=== PATIENT | female | born 1975 | race Caucasian/White ===

== ENCOUNTER → 2023-05-19 13:58 | Outpatient (BNVA) | payer BC, SELFPAY | PROVIDERS: PCP Nurse Practitioner Family; Visit Provider Nurse Practitioner Family ==

== ENCOUNTER 2023-08-09 15:38 | Outpatient (AMB) | payer BC, SELFPAY ==
[2023-08-09 15:47] VITALS: BP 124/86; PULSE 86; O2SAT 100; BMI 32.0
--- NOTE | 2023-08-09 15:47 | MHC.PC.OV ---
"Vital Signs 08/09/23 15:47 Height 5 ft 5 in Weight 192 lb 4 oz BMI 32.0 BP 124/86 Blood Pressure Location Lt brachial Position Sitting Pulse 86 Pulse Source Pulse Oximeter Pulse Oximetry (%) 100 Oxygen Delivery Method Room Air Intake Visit Reasons: PE Allergies tetracycline Allergy (Intermediate, Verified 08/09/23 15:49) diarrhea Tobacco use date assessed: 08/09/23 Dental Screening Dental Screen Date: 08/09/23 Did you have a dental visit in the last 12 months?: Yes Did you have a dental problem in the last 6 months where you did not have access to dental care?: No Was dental information given to patient?: Patient has dentist HPI PE HPI Details Pt is here for a PE. Will order labs. Colon screen is scheduled. Mammo is up to date. Has a ob/gyn nurse. [facility] Medical History Migraines Multiple sclerosis Optic neuritis Family History Father Mental health disorder Social History Housing: House Patient Tobacco Use Status: Never used Tobacco e-Cigarette/Vaping Use: Never Used Second Hand Smoke Exposure: No service: No Current occupational status: employed Current occupation: [employer] | [employer] Current occupational exposures/hazards: No Cognitive needs: No Hearing needs: No Vision needs: No Questionnaire Thrive Questionnaire Date Thrive assessed: 05/30/22 CAREN-7 AMB Questionnaire CAREN-7 Date CAREN - 7 assessed: 05/30/22 Source: Developed by Drs. Milton Yanes, Ashley Calderón, Jose Maria Liu and colleagues, with an educational louis from [employer]. Review of Systems Const Denies chills and Denies fever(s) Eyes Denies blurry vision ENT Denies vertigo, Denies dizziness and Denies sore throat Card Denies chest pain at rest, Denies chest pain with activity, Denies diaphoresis, Denies dyspnea and Denies dyspnea on exertion Resp Denies cough, Denies dyspnea, Denies dyspnea on exertion and Denies wheezing GI Denies abdominal pain, Denies melena, Denies hematochezia, Denies constipation, Denies diarrhea and Denies loose stools Denies hematuria Musc Denies numbness and Denies tingling Skin/Breast Denies lesions Neuro Denies vertigo, Denies dizziness, Denies numbness and Denies tingling Psych Denies anxiety, Denies depression, Denies homicidal ideation, Denies suicidal ideation and Denies other (substance abuse) Aller/Immun Denies wheezing Physical exam (Primary Care) Vital Signs: Last Vital Signs Pulse 86 08/09/23 15:47 BP 124/86 08/09/23 15:47 Pulse Ox 100 08/09/23 15:47 Oxygen Delivery Method Room Air 08/09/23 15:47 BMI result Body Mass Index 32.0 Tobacco/Smoking Status: Tobacco use Status Tobacco use date assessed 08/09/23 08/09/23 15:52 Patient Tobacco Use Status Never used Tobacco 08/09/23 15:52 e-Cigarette/Vaping Use Never Used 08/09/23 15:52 Thrive Assessment: Date of Thrive Assessment Date Thrive assessed 05/30/22 08/09/23 15:52 Const General: cooperative Nutritional Appearance: obese Orientation/consciousness: patient oriented x3 HENMT Head: Yes normal to inspection, Yes normocephalic and Yes atraumatic Ears: TM's normal bilaterally Eyes General: appearance normal, both eyes and all related structures Alignment and Position: alignment normal and position normal Neck Neck: Yes normal visual inspection and Yes no lymphadenopathy Thyroid: Thyroid normal Resp Effort & Inspection: normal respiratory effort Auscultation: clear to auscultation bilaterally Cardio Rate: regular rate Rhythm: regular rhythm Heart sounds: S1 normal heart sound present, S2 normal heart sound present and no murmurs GI Palpation (GI): Soft to palpation and nontender Auscultation: normal bowel sounds Skin Rashes: no rashes Neuro General: patient oriented x3, moves all extremities, no focal motor deficits and deep tendon reflexes 2+ bilaterally Romberg Test: Negative Psych Appearance: grossly normal Mental Status: mental status grossly normal Speech and movement: Normal speech and movement present Affect: normal affect Attitude: cooperative Thought process: Normal thought process present Thought content: Normal thought content present Insight: Good insight present (Psych) Judgement: Good judgement present (Psych) Assessment and Plan Assessment & Plan (1) Physical exam: Code(s): Z00.00 - Encounter for general adult medical examination without abnormal findings Plan The patient agreed to the use of a medical office professional instructor for this encounter. Scribed for POLLO Castro by Marianela Herzog medical office professional instructor, on 08/09/2023 at 15:55 EST. Coding Level of Care Code Est Pt Prev Care 40-64y(44923) Diagnoses Physical exam Z00.00"
== END 2023-08-09 16:39 | disposition home or self-care (01) ==
PROVIDERS: Visit Provider Nurse Practitioner Family
DX: Z00.00 Encounter for general adult medical examination without abnormal findings (principal)
CPT/HCPCS: 99396

== ENCOUNTER 2023-11-15 08:49 | Outpatient (REF) | payer BC, SELFPAY ==
[2023-11-15 12:27] LABS: HBS Num1 0.38 mIU/mL (0-7.99); HBc Num1 0.14 S/CO (0.00-0.79); HBsAGNum1 0.34 S/CO (0.00-0.99); Hepatitis A Antibody IgM 0.11 Index (0-0.79); Hepatitis B Core Antibody Nonreactive (Nonreactive); Hepatitis B Surface Antigen Negative (Negative); ~HepC Num1 0.12 S/CO (0.00-0.79); ~Hepatitis A Antibody IgM Nonreactive (Nonreactive); ~Hepatitis B Surface Antibody NONREACTIVE (Nonreactive); ~Hepatitis C Antibody Nonreactive (Nonreactive)
[2023-11-16 16:13] LABS: Rubella IgG Antibody 5.87 Index
[2023-11-17 21:28] LABS: TS Negative Control Passed; TS Panel A 0; TS Panel B 0; TS Positive Control Passed; TSpotTB Negative (Negative)
== END 2023-11-15 08:50 | disposition home or self-care (01) ==
LOC: HO.HMGCLDS 08:49
PROVIDERS: PCP Nurse Practitioner Family; Visit Provider Nurse Practitioner Family
DX: Z28.29 Immunization not carried out because of patient decision for other reason (principal)
CPT/HCPCS: 36415; 86481; 86704; 86706; 86709; 86735; 86762; 86765; 86787; 86803; 87340

== ENCOUNTER 2024-08-30 12:44 | Outpatient (REF) | payer BC, SELFPAY | END 2024-08-30 12:45 | disposition home or self-care (01) | LOC: HO.HMGCX 12:44 | PROVIDERS: PCP Nurse Practitioner Family; Visit Provider Nurse Practitioner Family | DX: Z13.89 Encounter for screening for other disorder (principal) ==

== ENCOUNTER 2024-08-30 12:50 | Outpatient (REF) | payer BC, SELFPAY ==
--- NOTE | ~2024-08-30 | US_ITS ---
EXAMINATION: US THYROID CLINICAL INFORMATION: Nontoxic single thyroid nodule. COMPARISON: None available. TECHNIQUE: Linear transducer grayscale and color Doppler examination with attention to the region of the thyroid. FINDINGS: SIZE: Measurements of the thyroid lobes and nodules are given in sagittal, anteroposterior and transverse dimensions respectively. Right Thyroid Lobe: 5.1 x 1.6 x 1.9 cm, volume 8.1 mL. Parenchyma: The gland echotexture is homogeneous. Thyroid vascularity is normal. Left Thyroid Lobe: 5.5 x 1.3 x 1.6 cm, volume 6.0 mL. Parenchyma: The gland echotexture is homogeneous. Thyroid vascularity is normal. Isthmus: 0.6 cm in maximum AP dimension. Estimated total number of nodules greater than or equal to 1 cm: 0. [employer] nodules are described as follows: 1. Location: Left mid pole. Size: 0.6 x 0.3 x 0.5 cm, volume 0.05 mL. Nodule characteristics: Composition: Solid (2). Echogenicity: Hypoechoic (2). Shape: Not taller than wide (0). Margins: Smooth (0). Echogenic Foci: None (0). ACR TI-RADS total points: 4 ACR TI-RADS category: 4 2. Location: Right mid pole. Size: 0.6 x 0.4 x 0.4 cm, volume 0.06 mL. Nodule characteristics: Composition: Solid (2). Echogenicity: Isoechoic (1). Shape: Not taller than wide (0). Margins: Smooth (0). Echogenic Foci: None (0). ACR TI-RADS total points: 3 ACR TI-RADS category: 3 Solid hypoechoic nodule posterior and inferior to the right thyroid lobe measures 1.6 x 1.4 x 1.1 cm. This may represent a parathyroid adenoma versus exophytic thyroid nodule. NODES: No lymphadenopathy is seen in the tissue surrounding the thyroid gland. US/US thyroid IMPRESSION: Solid hypoechoic nodule posterior and inferior to the right thyroid lobe measures 1.6 x 1.4 x 1.1 cm. This may represent a parathyroid adenoma versus exophytic thyroid nodule. Correlation should be made with parathyroid hormone levels. ACR TI-RADS RECOMMENDATION REFERENCE: Ultrasound-guided fine-needle aspiration, followup ultrasound, no further follow up. * TR1 (0 point) and TR2 (2 points): No FNA or follow up. * TR3 (3 points): FNA if more than or equal to 2.5 cm in maximum dimension, followup ultrasound in 1, 3 and 5 years if 1.5 to 2.4 cm in maximum dimension. * TR4 (4-6 points): FNA if more than or equal to 1.5 cm in maximum dimension, followup ultrasound in 1, 2, 3 and 5 years if 1 to 1.4 cm in maximum dimension. * TR5 (more than or equal to 7 points): FNA if more than or equal to 1 cm in maximum dimension, followup ultrasound every year for 5 years if 0.5 to 0.9 cm in maximum dimension. * TR3, TR4 or TR5 nodules that are below the size threshold for followup receive no follow up. Electronically signed by: Brad Wallace MD 08/30/2024 04:22 PM EDT
== END 2024-08-30 12:51 | disposition home or self-care (01) ==
LOC: HO.HMGCX 12:50
PROVIDERS: PCP Nurse Practitioner Family; Visit Provider Nurse Practitioner Family
DX: E04.1 Nontoxic single thyroid nodule (principal)
CPT/HCPCS: 76536

== ENCOUNTER 2024-09-06 14:14 | Outpatient (REF) | payer BC, SELFPAY ==
[2024-09-06 17:03] LABS: Alanine Aminotransferase 42 U/L (0-31); Albumin Level 4.2 g/dL (3.5-5.0); Alkaline Phosphatase 55 U/L (39-117); Anion Gap 11 (12-20); Aspartate Amino Transferase 21 U/L (5-31); Bilirubin Total 0.4 mg/dL (0.0-1.0); Blood Urea Nitrogen 15 mg/dL (9-16); Calcium 9.6 mg/dL (8.4-10.2); Carbon Dioxide 25 mmol/L (22-29); Chloride 108 mmol/L (96-108); Estimated Glomerular Filt Rate > 60; Glucose Random 97 mg/dL (60-115); Parathyroid Hormone Intact 54.8 pg/mL (8.7-77.1); Potassium 4.2 mmol/L (3.3-5.1); Sodium 140 mmol/L (135-145); Total Protein 7.1 g/dL (6.5-8.0)
[2024-09-06 17:06] LABS: TSH reflex Free T4 0.93 uIU/mL (0.32-4.0)
[2024-09-11 15:19] LABS: Calcium, Ionized 5.3 mg/dL (4.7-5.5)
== END 2024-09-06 14:15 | disposition home or self-care (01) ==
LOC: HO.HMGCLDS 14:14
PROVIDERS: PCP Nurse Practitioner Family; Visit Provider Nurse Practitioner Family
DX: E04.1 Nontoxic single thyroid nodule (principal)
CPT/HCPCS: 36415; 80053; 82330; 83970; 84443

== ENCOUNTER 2024-09-18 08:32 | Outpatient (REF) | payer BC, SELFPAY ==
--- NOTE | ~2024-09-18 | US_ITS ---
EXAMINATION: US ABDOMEN COMPLETE CLINICAL INFORMATION: Abnormal levels of other serum enzymes. COMPARISON: None available. TECHNIQUE: Real-time imaging of the abdominal viscera using grayscale and color Doppler technique. Technically limited study secondary to bowel gas. FINDINGS: PANCREAS: No peripancreatic fluid ABDOMINAL AORTA: The proximal, mid, and distal segments dose defecated a maximum of 2 cm in diameter in the proximal segment.. INFERIOR VENA CAVA: No color Doppler interrogation LIVER: Increased echotexture. . No solid or cystic lesion. Main portal vein is not fully depicted. No intrahepatic biliary ductal dilatation. . GALLBLADDER: Surgically absent. COMMON BILE DUCT: Measures 4 mm. RIGHT KIDNEY: 10 cm. No hydronephrosis. Normal echotexture. No solid or cystic lesion. Normal renal cortical thickness. Normal flow on color Doppler interrogation of the renal hilum. LEFT KIDNEY: 10 cm. No hydronephrosis. Normal renal cortical thickness. No solid or cystic lesion. Normal flow on color Doppler interrogation of the renal hilum. SPLEEN: 11 cm. No solid or cystic lesion. FREE FLUID: None. US/US abdomen complete IMPRESSION: Hepatocellular disease versus hepatic steatosis. No ascites. No hydronephrosis. Electronically signed by: Kalyan Siu MD 10/02/2024 07:56 AM EST
== END 2024-09-18 08:33 | disposition home or self-care (01) ==
LOC: HO.HMGCX 08:32
PROVIDERS: PCP Nurse Practitioner Family; Visit Provider Nurse Practitioner Family
DX: R74.8 Abnormal levels of other serum enzymes (principal)
CPT/HCPCS: 76700

== ENCOUNTER → 2024-09-18 08:41 | Outpatient (BNV) | payer BC, SELFPAY | PROVIDERS: PCP Nurse Practitioner Family; Visit Provider Radiology Diagnostic Radiology | DX: R74.8 Abnormal levels of other serum enzymes (principal) | CPT/HCPCS: 76700 ==

== ENCOUNTER 2024-09-20 08:34 | Outpatient (REF) | payer BC, SELFPAY ==
[2024-09-20 17:14] LABS: Vitamin D 25-OH Total 60.5 ng/mL (>30)
[2024-09-25 14:23] LABS: Calcitonin <2 pg/mL (<=5)
== END 2024-09-20 08:35 | disposition home or self-care (01) ==
LOC: HO.HMGCLDS 08:34
PROVIDERS: PCP Nurse Practitioner Family; Visit Provider Student in an Organized Health Care Education/Training Program
DX: E55.9 Vitamin D deficiency, unspecified (principal); E04.1 Nontoxic single thyroid nodule
CPT/HCPCS: 36415; 82306; 82308

== ENCOUNTER 2024-09-20 08:34 | Outpatient (AMB) | payer BC, SELFPAY ==
--- NOTE | 2024-09-20 08:35 | A.OFFVIS_ITS ---
Vital Signs 09/20/24 08:37 Height 5 ft 5 in Weight 205 lb 4.006 oz BMI 34.2 BP 130/74 Blood Pressure Location Lt brachial Position Sitting Pulse 90 Pulse Source Pulse Oximeter Intake Visit Reasons: Nontoxic single thyroid nodule-lvm Intake Note: Patient present today for Nontoxic single thyroid nodule. 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 Diagnosed with MS 2010, managed conservatively, was undergoing surveillance cervial imaging when thyroid abnormalities picked up incidentally . US 08/30/24 I reviewed the images myself which showed a left subcentimeter TR 4 nodule, a right mid lobe subcentimeter TR 3 nodule, as well as a right 1.6 cm posterior and inferior nodule that is exophytic thyroid nodule or possibly parathyroid adenoma. This is solid, hypoechoic. Given its size and features, this meets criteria for FNA Patient currently denies heat or cold intolerance, diarrhea or constipation, hair loss, weight changes, mood changes, low energy, changes in appearance of eyes or vision changes, tremors, increased diaphoresis or dry skin. ? Does report palpitations she says she hasnt been evaluated for the palpitations. PCP feels related to anxiety. Reports a pressure sensation when she lays down flat for the past 6 months. Patient denies any difficulty swallowing, pain on swallowing or voice changes or difficulty breathing. Patient denies any history of childhood neck radiation. Denies having ever used lithium, amiodarone or biotin supplements. Patient denies any family history of thyroid cancer or thyroid disease. 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 Pulmonary: No SOB GI:No abdominal pain, no nausea or vomiting, no anorexia, no blood in stool : no burning micturition, dysuria or increase in urinary frequency Neurologic: No dizziness, no weakness in extremities Physical exam General: sitting comfortably in no acute distress HEENT: normocephalic/atraumatic, EOM intact, moist oral mucosa Neck: supple, symmetrical, no thyromegaly , no dorsocervical or supraclavicular fat pads Cardiac: normal heart sounds Pulm: normal breath sounds B/L, no added breath sounds Abd: not distended, no tenderness Extremities: no edema, no signs of myxedema Neuro: AAO x3, Speech: normal, no facial droop, moving all 4 extremities Laboratory Tests 09/06/24 14:33 Creatinine 0.89 Estimated GFR > 60 Calcium 9.6 Albumin 4.2 TSH 0.93 PTH Intact 54.8 Imaging US THYROID 09/12 CLINICAL INFORMATION: Nontoxic single thyroid nodule. COMPARISON: None available. TECHNIQUE: Linear transducer grayscale and color Doppler examination with attention to the region of the thyroid. FINDINGS: SIZE: Measurements of the thyroid lobes and nodules are given in sagittal, anteroposterior and transverse dimensions respectively. Right Thyroid Lobe: 5.1 x 1.6 x 1.9 cm, volume 8.1 mL. Parenchyma: The gland echotexture is homogeneous. Thyroid vascularity is normal. Left Thyroid Lobe: 5.5 x 1.3 x 1.6 cm, volume 6.0 mL. Parenchyma: The gland echotexture is homogeneous. Thyroid vascularity is normal. Isthmus: 0.6 cm in maximum AP dimension. Estimated total number of nodules greater than or equal to 1 cm: 0. 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 Location: Left mid pole. Size: 0.6 x 0.3 x 0.5 cm, volume 0.05 mL. Nodule characteristics: Composition: Solid (2). Echogenicity: Hypoechoic (2). Shape: Not taller than wide (0). Margins: Smooth (0). Echogenic Foci: None (0). ACR TI-RADS total points: 4 ACR TI-RADS category: 4 2. Location: Right mid pole. Size: 0.6 x 0.4 x 0.4 cm, volume 0.06 mL. Nodule characteristics: Composition: Solid (2). Echogenicity: Isoechoic (1). Shape: Not taller than wide (0). Margins: Smooth (0). Echogenic Foci: None (0). ACR TI-RADS total points: 3 ACR TI-RADS category: 3 Solid hypoechoic nodule posterior and inferior to the right thyroid lobe measures 1.6 x 1.4 x 1.1 cm. This may represent a parathyroid adenoma versus exophytic thyroid nodule. NODES: No lymphadenopathy is seen in the tissue surrounding the thyroid gland. US/US thyroid IMPRESSION: Solid hypoechoic nodule posterior and inferior to the right thyroid lobe measures 1.6 x 1.4 x 1.1 cm. This may represent a parathyroid adenoma versus exophytic thyroid nodule. Correlation should be made with parathyroid hormone levels. [facility] Medical History Migraines Multiple sclerosis Optic neuritis Family History Father Mental health disorder Social History Housing: House Patient Tobacco Use Status: Never used Tobacco e-Cigarette/Vaping Use: Never Used Second Hand Smoke Exposure: No service: No Current occupational status: employed Current occupation: [employer] Current occupational exposures/hazards: No Cognitive needs: No Hearing needs: No Vision needs: No Physical Exam Vital Signs: Last Vital Signs Pulse 90 09/20/24 08:37 BP 130/74 09/20/24 08:37 BMI result Body Mass Index 34.2 Assessment & Plan Assessment & Plan (1) Thyroid nodule: Code(s): E04.1 - Nontoxic single thyroid nodule Category: Medical Plan: Patient with no family history of thyroid cancer, with no personal history of head or neck radiation coming in today to establish care for multinodular thyroid. Underwent ultrasound US 08/30/24 I reviewed the images myself which showed a left subcentimeter TR 4 nodule, a right mid lobe subcentimeter TR 3 nodule, as well as a right 1.6 cm posterior and inferior nodule that is exophytic thyroid nodule or possibly parathyroid adenoma. This is solid, hypoechoic. Given its size and features, this meets criteria for FNA. She does not have any compressive symptoms. TSH normal from August 2024. Given that there is suspicion whether this dominant right-sided nodule could possibly a parathyroid adenoma, calcium and PTH levels checked August 2024 were also within normal limits. She is not on any vitamin-D or calcium supplementation since she has a low nutritional intake calcium due to GI intolerance to dairy products. I will check her vitamin-D levels as well, sometimes parathyroid glands are enlarged in the setting of vitamin-D deficiency. However based on the size of this possible exophytic thyroid nodule, we will go ahead and schedule her for a biopsy. I will ask for the sample to be stained for Parafibromin to determine whether this is parathyroid tissue. I explained that it is common to have thyroid nodules. About 95% of the time these nodules are benign. However if the nodule is > 1 cm in size or suspicious on ultrasound then a fine need aspiration biopsy is recommended. We discussed that a FNAB involves 4-5 passes with a small gauge needle and material obtained is sent off for cytology.If the cytopathology is benign then the nodule will be followed annually with repeat ultrasounds. However if it is suspicious or malignant, we will need to discuss further management. Indeterminate cytology can be further investigated with repeat FNA, genetic testing or empiric lobectomy. Malignant cytology is managed with either lobectomy or total thyroidectomy. We discussed briefly that thyroid cancer is, in most patients, an indolent disease that does not affect mortality. We will arrange for FNA of the right inferior and posterior 1.6 cm nodule at next available opening and patient will follow up with me in clinic thereafter for results and further decision making. Plan: -scheduled FNA of the right inferior and posterior 1.6 cm thyroid nodule -follow up 1-2 weeks after biopsy to discuss results Plan I spent 45 minutes in reviewing the record, seeing the patient and documenting in the medical record. Orders: Orders US biopsy thyroid Today E04.1 - Nontoxic single thyroid nodule Vitamin D 25-OH Total Today E55.9 - Vitamin D deficiency, unspecified Coding Level of Care Code New Pt Level 4 (39403) Diagnoses Thyroid nodule E04.1 Time Spent (min) 45
[2024-09-20 08:37] VITALS: BP 130/74; PULSE 90; BMI 34.2
== END 2024-09-20 09:46 | disposition home or self-care (01) ==
LOC: HO.ENCR 08:34
PROVIDERS: PCP Nurse Practitioner Family; Visit Provider Student in an Organized Health Care Education/Training Program
DX: E04.1 Nontoxic single thyroid nodule (principal)
CPT/HCPCS: 99204

== ENCOUNTER 2024-10-02 08:31 | Outpatient (REF) | payer BC, SELFPAY ==
--- NOTE | 2024-10-02 09:38 | PCN2_ITS ---
Brief Operative Note Date of procedure: 10/02/24 Pre-op diagnosis: right inferior posterior 1.6 cm thyroid nodule Procedure: THYROID FINE NEEDLE ASPIRATION PROCEDURE NOTE ? PROCEDURE PERFORMED: Ultrasound-guided FNA of thyroid nodule ? OPERATORS: ? INDICATION: right inferior posterior 1.6 cm thyroid nodule; FNA performed to assess for malignancy ? DESCRIPTION OF PROCEDURE: The indications for FNA (to assess for malignancy) were reviewed with the patient in detail. Potential complications (e.g., bleeding, infection, damage to local structures, absence of clear diagnosis after FNA) were reviewed. Alternatives to FNA including conservative observation or surgery were described. The patient understood and agreed to proceed. This was documented by the signing of the written informed consent form. A time-out was performed to confirm the patient's identity and the site of planned FNA. The nodule of interest was identified using ultrasound (14 MHz linear array probe). The site of FNA was then draped in the usual fashion and carefully cleaned and prepared using alcohol swabs. The skin at the previously-identified site of needle insertion was iced and sprayed with numbing spray. Under ultrasound guidance, _6_ passes were performed using a 1.5-inch, 25-gauge needle, and sample was obtained via capillary action. The needle tip was clearly visualized to be within the nodule at the time of sampling for _6_ of _6_ passes. The last two passes were washed into a sterile tube to be evaluated for PTH in FNA aspirate. The patient tolerated the procedure well. There were no immediate complications. A small adhesive bandage was applied, and the patient was advised to take mauri taminophen (rather than NSAIDs) for any discomfort and to report any signs of inflammation/infection or marked swelling. IMPRESSION: Technically successful ultrasound-guided fine needle aspiration of right inferior posterior 1.6 cm thyroid nodule. PLAN: The patient was advised that I will provide follow-up regarding the cytology result and any subsequent plans. Alexandra Batista MD Endocrinology Attending Condition: stable Disposition: same day
== END 2024-10-02 08:32 | disposition home or self-care (01) ==
LOC: HO.US 08:31
PROVIDERS: PCP Nurse Practitioner Family; Visit Provider Student in an Organized Health Care Education/Training Program
DX: E04.1 Nontoxic single thyroid nodule (principal)
CPT/HCPCS: 10005; 83970; 88173

== ENCOUNTER → 2024-10-02 08:31 | Outpatient (BNV) | payer BC, SELFPAY | PROVIDERS: PCP Nurse Practitioner Family; Visit Provider Student in an Organized Health Care Education/Training Program | DX: E04.1 Nontoxic single thyroid nodule (principal) | CPT/HCPCS: 10005 ==

== ENCOUNTER 2024-10-21 14:47 | Outpatient (AMB) | payer BC, SELFPAY ==
[2024-10-21 14:48] VITALS: BP 120/86; PULSE 88; BMI 35.8
--- NOTE | 2024-10-21 14:48 | MHC.OFFVIS ---
Vital Signs 10/21/24 14:48 Height 5 ft 5 in Weight 214 lb 15.211 oz BMI 35.8 BP 120/86 Blood Pressure Location Lt brachial Position Sitting Pulse 88 Pulse Source Pulse Oximeter Intake Visit Reasons: Biopsy f/u Intake Note: Patient present today for biopsy results. 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 HPI prior visit Diagnosed with MS 2010, managed conservatively, was undergoing surveillance cervial imaging when thyroid abnormalities picked up incidentally . US 08/30/24 I reviewed the images myself which showed a left subcentimeter TR 4 nodule, a right mid lobe subcentimeter TR 3 nodule, as well as a right 1.6 cm posterior and inferior nodule that is exophytic thyroid nodule or possibly parathyroid adenoma. This is solid, hypoechoic. Given its size and features, this met criteria for FNA. On 10/02/2024, underwent FNA biopsy of the right inferior posterior 1.6 cm thyroid nodule with benign cytology. We also sent for a PTH level to be tested in the thyroid FNA washout which was not positive for parathyroid tissue. Patient currently denies heat or cold intolerance, diarrhea or constipation, hair loss, weight changes, mood changes, low energy, changes in appearance of eyes or vision changes, tremors, increased diaphoresis or dry skin. ? Does report palpitations she says she hasnt been evaluated for the palpitations. PCP feels related to anxiety. Reports a pressure sensation when she lays down flat for the past 6 months. Patient denies any difficulty swallowing, pain on swallowing or voice changes or difficulty breathing. Patient denies any history of childhood neck radiation. Denies having ever used lithium, amiodarone or biotin supplements. Patient denies any family history of thyroid cancer or thyroid disease. 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 Pulmonary: No SOB GI:No abdominal pain, no nausea or vomiting, no anorexia, no blood in stool : no burning micturition, dysuria or increase in urinary frequency Neurologic: No dizziness, no weakness in extremities Physical exam General: sitting comfortably in no acute distress HEENT: normocephalic/atraumatic, EOM intact, moist oral mucosa Neck: supple, symmetrical, no thyromegaly , no dorsocervical or supraclavicular fat pads Cardiac: normal heart sounds Pulm: normal breath sounds B/L, no added breath sounds Abd: not distended, no tenderness Extremities: no edema, no signs of myxedema Neuro: AAO x3, Speech: normal, no facial droop, moving all 4 extremities Laboratory Tests 09/06/24 14:33 Creatinine 0.89 Estimated GFR > 60 Calcium 9.6 Albumin 4.2 TSH 0.93 PTH Intact 54.8 Imaging US THYROID 09/12 CLINICAL INFORMATION: Nontoxic single thyroid nodule. COMPARISON: None available. TECHNIQUE: Linear transducer grayscale and color Doppler examination with attention to the region of the thyroid. FINDINGS: SIZE: Measurements of the thyroid lobes and nodules are given in sagittal, anteroposterior and transverse dimensions respectively. Right Thyroid Lobe: 5.1 x 1.6 x 1.9 cm, volume 8.1 mL. Parenchyma: The gland echotexture is homogeneous. Thyroid vascularity is normal. Left Thyroid Lobe: 5.5 x 1.3 x 1.6 cm, volume 6.0 mL. Parenchyma: The gland echotexture is homogeneous. Thyroid vascularity is normal. Isthmus: 0.6 cm in maximum AP dimension. Estimated total number of nodules greater than or equal to 1 cm: 0. 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 Location: Left mid pole. Size: 0.6 x 0.3 x 0.5 cm, volume 0.05 mL. Nodule characteristics: Composition: Solid (2). Echogenicity: Hypoechoic (2). Shape: Not taller than wide (0). Margins: Smooth (0). Echogenic Foci: None (0). ACR TI-RADS total points: 4 ACR TI-RADS category: 4 2. Location: Right mid pole. Size: 0.6 x 0.4 x 0.4 cm, volume 0.06 mL. Nodule characteristics: Composition: Solid (2). Echogenicity: Isoechoic (1). Shape: Not taller than wide (0). Margins: Smooth (0). Echogenic Foci: None (0). ACR TI-RADS total points: 3 ACR TI-RADS category: 3 Solid hypoechoic nodule posterior and inferior to the right thyroid lobe measures 1.6 x 1.4 x 1.1 cm. This may represent a parathyroid adenoma versus exophytic thyroid nodule. NODES: No lymphadenopathy is seen in the tissue surrounding the thyroid gland. US/US thyroid IMPRESSION: Solid hypoechoic nodule posterior and inferior to the right thyroid lobe measures 1.6 x 1.4 x 1.1 cm. This may represent a parathyroid adenoma versus exophytic thyroid nodule. Correlation should be made with parathyroid hormone levels. [facility] Medical History (Updated 09/20/24 @ 09:41 by Alexandra Batista MD) Vitamin D deficiency Optic neuritis Migraines Multiple sclerosis Family History Father Mental health disorder Social History Housing: House Patient Tobacco Use Status: Never used Tobacco e-Cigarette/Vaping Use: Never Used Second Hand Smoke Exposure: No service: No Current occupational status: employed Current occupation: [employer] Current occupational exposures/hazards: No Cognitive needs: No Hearing needs: No Vision needs: No Physical Exam Vital Signs: Last Vital Signs Pulse 88 10/21/24 14:48 BP 120/86 10/21/24 14:48 BMI result Body Mass Index 35.8 Assessment & Plan Assessment & Plan (1) Thyroid nodule: Code(s): E04.1 - Nontoxic single thyroid nodule Category: Medical Plan: Patient with no family history of thyroid cancer, with no personal history of head or neck radiation coming in today to establish care for multinodular thyroid. Underwent ultrasound US 08/30/24 I reviewed the images myself which showed a left subcentimeter TR 4 nodule, a right mid lobe subcentimeter TR 3 nodule, as well as a right 1.6 cm posterior and inferior nodule that is exophytic thyroid nodule or possibly parathyroid adenoma. This is solid, hypoechoic. Given its size and features, this meets criteria for FNA. She does not have any compressive symptoms. TSH normal from August 2024. On 10/02/2024, underwent FNA biopsy of the right inferior posterior 1.6 cm thyroid nodule with benign cytology. We also sent for a PTH level to be tested in the thyroid FNA washout which was not positive for parathyroid tissue. I discussed with the patient that benign thyroid cytology needs less than 3% chance of malignancy. At this point we will plan to repeat an ultrasound in 1 year for surveillance. Plan: -ordered next thyroid ultrasound to be done in September 2025 -TSH, free T4 to be done in September 2025 -follow up in October 2025 Plan See above Orders: Orders Thyroid Stimulating Hormone 1 Year E04.1 - Nontoxic single thyroid nodule Free T4 (Free Thyroxine) 1 Year E04.1 - Nontoxic single thyroid nodule US thyroid 09/22/25 E04.1 - Nontoxic single thyroid nodule Patient Instructions: Do thyroid ultrasound in September 2025 Do blood work 3-4 days prior to your follow up in October 2025 Coding Level of Care Code Est Pt Level 3 (91360) Diagnoses Thyroid nodule E04.1
== END 2024-10-21 15:10 | disposition home or self-care (01) ==
PROVIDERS: PCP Nurse Practitioner Family; Visit Provider Student in an Organized Health Care Education/Training Program
DX: E04.1 Nontoxic single thyroid nodule (principal)
CPT/HCPCS: 99213

== ENCOUNTER 2024-10-28 12:41 | Outpatient (AMB) | payer BC, SELFPAY ==
--- NOTE | 2024-10-28 12:45 | MHC.PC.OV ---
Vital Signs 10/28/24 12:46 Height 5 ft 5 in Weight 214 lb BMI 35.6 BP 122/80 Blood Pressure Location Rt brachial Position Sitting Pulse 86 Pulse Source Pulse Oximeter Pulse Oximetry (%) 98 Oxygen Delivery Method Room Air Intake Visit Reasons: PE Intake Note: pt is here for PE Allergies tetracycline Allergy (Intermediate, Verified 10/28/24 12:46) diarrhea Medication List - Last Reconciled 10/28/24 by REJI RehmanP- gabapentin 300 mg PO TID medroxyprogesterone mg IM scopolamine base 1 patch transdermal Q3D PRN Tobacco use date assessed: 10/28/24 Dental Screening Dental Screen Date: 10/28/24 Did you have a dental visit in the last 12 months?: Yes Did you have a dental problem in the last 6 months where you did not have access to dental care?: No Was dental information given to patient?: Patient has dentist HPI PE HPI Details History of Present Illness The patient is a 49-year-old female presenting with multiple health concerns during her annual physical exam. She reports experiencing daily chest heaviness, primarily associated with stress. There are no sharp or shooting pains noted. The patient mentioned feelings of fatigue. She experiences migraines but denies any recent exacerbations. The patient's menopausal status is under review, and she continues to receive Depo shots despite her aerospace stress engineer's recommendation to discontinue them. Regarding previous health screenings, her Cologuard, Pap smear, and mammogram are up to date. Liver function tests indicated slight elevation, and an ultrasound revealed fatty liver, attributed mainly to dietary factors. Moreover, despite a history of presenting with chest heaviness, there is no associated cardiovascular distress reported, but I plan to conduct an EKG as a precaution. BMI is 35.6, reports trying multiple diets, exercise routines, still obese. No Hx of pancreatitis will send a GLP-1 agonist. 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 - Diet: Conscious dietary habits with lemon water and collagen use - Recreational travel: Completed a cruise in [place] with dietary observations - Mental health: In therapy for depression - Exercise: Not explicitly discussed Review of Systems - Neurological: Reports excessive fatigue, migraines - Cardiovascular: Reports daily chest heaviness associated with stress - Psychological: Denies sharp shooting pains -no blood in stool or urine -denies any si or hi Physical Exam General: Cooperative, healthy appearing, comfortable, no acute distress and well developed, obese Orientation: Patient oriented x3 Limitations: No limitations Head: Normal to inspection Ears: Hearing grossly normal bilaterally Nose: Normal external nose present Face and sinus: Normal facial exam Eyes: Appearance normal, both eyes and all related structures Neck: Normal visual inspection and Yes full ROM Respiratory: Normal respiratory effort and able to speak in complete sentences. Clear to auscultation bilaterally Cardiovascular: Regular rate and rhythm. Normal S1 and S2. Reports daily heaviness in the chest, especially during stress. No sharp shooting pains. EKG to be performed. GI: Normal to inspection. Soft to palpation and nontender Skin: No rashes or lesions noted Neuro: Patient oriented x3. No numbness or tingling reported. Neurological test performed, no abnormalities noted. Extremities: Normal to inspection Results - MRI: Previous scan showed nodule but no lesions - Liver Ultrasound: Slight fat accumulation indicating fatty liver Plan - Migraine: Continue current management with monitoring of symptoms. - Chest heaviness: EKG to be conducted in-office to rule out any cardiovascular issues. - Fatty liver: Advise dietary modifications focusing on reducing fat and sugar intake. - Depression: Continue therapy with monitoring and support as needed. - Menopausal symptoms: Evaluate hormonal status with FSH and luteinizing hormone tests. - Fatigue: Monitor energy levels and conduct further evaluations if needed. Patient was informed and verbally consented to the use of an ambient scribe for clinic note documentation during this visit. Discussion Notes During the visit, I explained the significance of the findings associated with the patient's chest heaviness and related it to stress levels. I recommended an in-office EKG to exclude cardiovascular causes. The patient was informed of dietary recommendations to manage fatty liver, emphasizing the importance of reducing fat and sugar intake. Menopausal symptoms are being investigated, and hormonal tests were discussed as part of the assessment plan. Patient Instructions - EKG to be performed today. - Follow dietary recommendations to manage fatty liver. - Continue monitoring and managing migraines and depression. - Hormonal evaluations to be conducted as part of menopause assessment. - Return for follow-up as necessary. [facility] Medical History Vitamin D deficiency Optic neuritis Migraines Multiple sclerosis Surgical History No pertinent past surgical history Family History Father Mental health disorder Social History Housing: House Patient Tobacco Use Status: Never used Tobacco e-Cigarette/Vaping Use: Never Used Second Hand Smoke Exposure: No service: No Current occupational status: employed Current occupation: [employer] Current occupational exposures/hazards: No Cognitive needs: No Hearing needs: No Vision needs: No Questionnaire PHQ-9 Over the last 2 weeks, how often have you been bothered by any of the following problems? 1. Little interest or pleasure in doing things: several days 2. Feeling down, depressed, or hopeless: several days 3. Trouble falling or staying asleep, or sleeping too much: several days 4. Feeling tired or having little energy: several days 5. Poor appetite or overeating: several days 6. Feeling bad about yourself - or that you are a failure or have let yourself or your family down: several days 7. Trouble concentrating on things, such as reading the newspaper or watching television: several days 8. Moving or speaking so slowly that other people could have noticed. Or the opposite - being so fidgety or restless that you have been moving around a lot more than usual: several days 9. Thoughts that you would be better off or of hurting yourself in some way: not at all Total score: 8 Depression Screening Interpretation: Negative Depression Screening Done: Yes 26019 - PHQ-9 Billing: Yes Source: Developed by Drs. Milton Yanes, Ashley Calderón, Jose Maria Liu and colleagues, with an educational louis from [employer]. Thrive Questionnaire Date Thrive assessed: 10/28/24 I am a: Patient What is your living situation today?: I have a steady place to live Within the past 12 months, did the food you bought not last and you didn't have the money to get more?: I choose not to answer this question Within the past 12 months, did you worry whether your food would run out before you got money to buy more?: I choose not to answer this question Do you have trouble paying for medicines?: I choose not to answer this question Do you have trouble getting transportation to medical appointments?: No Do you have trouble paying your heating and electricity bill?: No Do you have trouble taking care of your child, family member or friend?: No Do you have trouble with day-to-day activities such as bathing, preparing meals, shopping, managing finances, etc.?: Yes Are you currently unemployed and looking for a job?: No Are you interested in more education?: No Please select the resources that you would like help with: None Currently or been in a relationship where the following occur: I choose not to answer THRIVE Score: 0 AUDIT C Alcohol Use Questionnaire (AUDIT-C) 1. How often do you have a drink containing alcohol?: Monthly or less 2. How many drinks containing alcohol do you have on a typical day when you are drinking?: 1 or 2 3. How often do you have six or more drinks on one occasion?: Never Total Score: 1 Score Reviewed/Action Taken: Yes CAREN-7 AMB Questionnaire CAREN-7 Date CAREN - 7 assessed: 10/28/24 Feeling nervous, anxious, or on edge: 3 = Nearly every day Not being able to stop or control worryin = Nearly every day Worrying too much about different things: 3 = Nearly every day Trouble relaxin = Nearly every day Being so restless that it is hard to sit still: 3 = Nearly every day Becoming easily annoyed or irritable: 3 = Nearly every day Feeling afraid as if something awful might happen: 2 = More than half the days Total CAREN-7 score (0-4 normal; 5-9 mild; 10-14 moderate; 15-21 severe): 20 Source: Developed by Drs. Milton Yanes, Ashley Calderón, Jose Maria Liu and colleagues, with an educational louis from [employer]. CAREN-7 Assessment Billing CAREN-7 Assessment Tool: CAREN-7 Assessment 79370 (has a therapist, denies any si or hi) Physical exam (Primary Care) Vital Signs: Last Vital Signs Pulse 86 10/28/24 12:46 BP 122/80 10/28/24 12:46 Pulse Ox 98 10/28/24 12:46 Oxygen Delivery Method Room Air 10/28/24 12:46 BMI result Body Mass Index 35.6 Tobacco/Smoking Status: Tobacco use Status Tobacco use date assessed 10/28/24 10/28/24 12:51 Patient Tobacco Use Status Never used Tobacco 10/28/24 12:51 e-Cigarette/Vaping Use Never Used 10/28/24 12:51 PHQ-9: PHQ-9 Score PHQ-9: Total score 8 10/28/24 12:51 Depression Screening Interpretation: Negative Thrive Assessment: Date of Thrive Assessment Date Thrive assessed 10/28/24 10/28/24 12:51 Currently or been in a relationship where the following occur: I choose not to answer Coding Level of Care Code Est Pt Prev Care 40-64y(53454) Diagnoses Physical exam Z00.00 Vitamin D deficiency E55.9 Chest discomfort R07.89 Obesity E66.9 Additional Codes PHQ-9 - 34255 - PHQ-9 Billing: Yes ([id number]) CAREN-7 Assessment Billing - CAREN-7 Assessment Tool: CAREN-7 Assessment 79269 ([id number]) Assessment & Plan Assessment & Plan (1) Physical exam: Code(s): Z00.00 - Encounter for general adult medical examination without abnormal findings Category: Medical (2) Vitamin D deficiency: Code(s): E55.9 - Vitamin D deficiency, unspecified Category: Medical (3) Chest discomfort: Code(s): R07.89 - Other chest pain Category: Medical (4) Obesity: Code(s): E66.9 - Obesity, unspecified Category: Medical Plan . Orders: Orders Comprehensive [place]. Panel Fast Today E55.9 - Vitamin D deficiency, unspecified, Z00.00 - Encounter for general adult medical examination without abnormal findings TSH reflex Free T4 Today E55.9 - Vitamin D deficiency, unspecified, Z00.00 - Encounter for general adult medical examination without abnormal findings Lipid Panel Today E55.9 - Vitamin D deficiency, unspecified, Z00.00 - Encounter for general adult medical examination without abnormal findings Lutenizing Hormone Today E55.9 - Vitamin D deficiency, unspecified, Z00.00 - Encounter for general adult medical examination without abnormal findings Complete Blood Count Auto Diff Today E55.9 - Vitamin D deficiency, unspecified, Z00.00 - Encounter for general adult medical examination without abnormal findings UA CC w/rflx Micro + Cult Today E55.9 - Vitamin D deficiency, unspecified, Z00.00 - Encounter for general adult medical examination without abnormal findings Follicle Stimulating Hormone Today E55.9 - Vitamin D deficiency, unspecified, Z00.00 - Encounter for general adult medical examination without abnormal findings Estrogen Today E55.9 - Vitamin D deficiency, unspecified, Z00.00 - Encounter for general adult medical examination without abnormal findings Estradiol Ultra Sensitive Today E55.9 - Vitamin D deficiency, unspecified, Z00.00 - Encounter for general adult medical examination without abnormal findings AMB EKG-In Office Today R07.89 - Other chest pain Medications: New semaglutide (weight loss) (Felix) administer weeks 1 through 4 of therapy 0.25 mg (0.5 mL) subcut QWEEK 2 mL 0RF
[2024-10-28 12:46] VITALS: BP 122/80; PULSE 86; O2SAT 98; BMI 35.6
== END 2024-10-28 14:22 | disposition home or self-care (01) ==
PROVIDERS: PCP Nurse Practitioner Family; Visit Provider Nurse Practitioner Family
DX: Z00.00 Encounter for general adult medical examination without abnormal findings (principal); E55.9 Vitamin D deficiency, unspecified; E66.9 Obesity, unspecified; Z68.35 Body mass index [BMI] 35.0-35.9, adult; R07.89 Other chest pain

== ENCOUNTER → 2024-10-28 12:41 | Outpatient (BNVA) | payer BC, SELFPAY | PROVIDERS: PCP Nurse Practitioner Family; Visit Provider Nurse Practitioner Family | DX: Z00.01 Encounter for general adult medical examination with abnormal findings (principal); R07.89 Other chest pain; E55.9 Vitamin D deficiency, unspecified; E66.9 Obesity, unspecified; Z68.35 Body mass index [BMI] 35.0-35.9, adult; G43.909 Migraine, unspecified, not intractable, without status migrainosus; K76.0 Fatty (change of) liver, not elsewhere classified; F32.A Depression, unspecified; R53.83 Other fatigue | CPT/HCPCS: 93005; 96127 ==

== ENCOUNTER 2024-11-29 06:48 | Outpatient (REF) | payer BC, SELFPAY ==
[2024-11-29 10:11] LABS: MANUAL DIFF FLAG NO
[2024-11-29 10:16] LABS: Basophils Absolute Auto 0.1 X10*3/uL (0.0-0.2); Basophils Percent Auto 0.8 % (0-2); Eosinophils Absolute Auto 0.5 X10*3/uL (0.0-0.4); Eosinophils Percent Auto 7.2 % (0-4); Hematocrit 46.5 % (37.0-47.0); Hemoglobin 15.4 g/dl (12.0-16.0); Imm Gran Abs Auto 0.03 X10*3/uL (0.00-0.03); Imm Gran Pct Auto 0.5 % (0.0-0.4); Lymphocytes Absolute Auto 1.9 X10*3/uL (1.2-4.9); Lymphocytes Percent Auto 30.4 % (20-40); Mean Corpuscular HGB Conc 33.1 g/dl (31.0-35.0); Mean Corpuscular Volume 93.6 fL (80.0-98.0); Mean Platelet Volume 11.3 fL (9.4-12.3); Monocytes Absolute Auto 0.4 X10*3/uL (0.1-1.2); Neutrophils Absolute Auto 3.4 x10*3/uL (2.0-8.3); Neutrophils Percent Auto 54.1 % (45-73); Platelet Count 315 X10*3/uL (160-400); Red Blood Count 4.97 X10*6/uL (4.20-5.50); Red Cell Distribution Width 12.3 % (11.0-16.0); White Blood Count 6.3 X10*3/uL (4.8-10.8)
[2024-11-29 11:57] LABS: Alanine Aminotransferase 30 U/L (0-31); Albumin Level 4.3 g/dL (3.5-5.0); Alkaline Phosphatase 56 U/L (39-117); Anion Gap 12 (12-20); Aspartate Amino Transferase 20 U/L (5-31); Bilirubin Total 0.4 mg/dL (0.0-1.0); Blood Urea Nitrogen 9 mg/dL (9-16); Calcium 9.3 mg/dL (8.4-10.2); Carbon Dioxide 19 mmol/L (22-29); Chloride 115 mmol/L (96-108); Cholesterol 181 mg/dL (<200); Estimated Glomerular Filt Rate > 60; Glucose Fasting 92 mg/dL (60-99); HDL Cholesterol 47 mg/dL (>40); LDL Cholesterol Calculated 116 mg/dL (<100); Potassium 3.8 mmol/L (3.3-5.1); Sodium 142 mmol/L (135-145); Total Protein 7.4 g/dL (6.5-8.0); Triglycerides 91 mg/dL (<150)
[2024-11-29 12:00] LABS: TSH reflex Free T4 1.23 uIU/mL (0.32-4.0)
[2024-12-02 02:23] LABS: Lutenizing Hormone 1.7 mIU/mL
[2024-12-05 00:33] LABS: Estrogen 375 pg/mL
[2024-12-05 21:34] LABS: Estradiol Ultra Sensitive 264 pg/mL
== END 2024-11-29 06:49 | disposition home or self-care (01) ==
LOC: HO.HMGCLDS 06:48
PROVIDERS: PCP Nurse Practitioner Family; Visit Provider Nurse Practitioner Family
DX: Z00.00 Encounter for general adult medical examination without abnormal findings (principal); E55.9 Vitamin D deficiency, unspecified
CPT/HCPCS: 36415; 80053; 80061; 82670; 82672; 83001; 83002; 84443; 85025

== ENCOUNTER 2024-12-18 12:52 | Outpatient (AMB) | payer BC, SELFPAY ==
[2024-12-18 13:09] VITALS: BP 120/76; PULSE 86; O2SAT 98; BMI 33.1
--- NOTE | 2024-12-18 13:09 | MHC.PC.OV ---
Vital Signs 12/18/24 13:09 Height 5 ft 5 in Weight 199 lb BMI 33.1 BP 120/76 Blood Pressure Location Lt brachial Position Sitting Pulse 86 Pulse Source Pulse Oximeter Pulse Oximetry (%) 98 Oxygen Delivery Method Room Air Intake Visit Reasons: follow up Intake Note: pt is here for weight loss follow up Allergies tetracycline Allergy (Intermediate, Verified 12/18/24 13:09) diarrhea Tobacco use date assessed: 12/18/24 Dental Screening Dental Screen Date: 12/18/24 Did you have a dental visit in the last 12 months?: Yes Did you have a dental problem in the last 6 months where you did not have access to dental care?: No Was dental information given to patient?: Patient has dentist HPI follow up HPI Details Chief Complaint Anxiety and depression management. History of Present Illness The patient is a 49-year-old female presenting with a history of anxiety and depression. She reports these conditions have been more pronounced following the passing of her from cancer approximately three years ago. Since then, the patient has been managing her mental health with apparent improvements over time. She describes her emotional state as generally positive but acknowledges the occurrence of occasional difficult days. Despite this, she denies experiencing suicidal or homicidal ideations at present. The patient has been actively working on building a stronger relationship with her daughter, aged 18, and they have recently bonded through shared activities, such as getting tattoos. No specific treatments or medications were discussed in relation to her current condition during this visit. Social History - Family status: Bonding with her 18-year-old daughter; no spouse due to widowhood. - Recent family bonding activity: Patient and daughter got tattoos together. Health Maintenance Review of Systems - Psychiatric: Denies suicidal and homicidal ideation. Physical Exam General: Cooperative, healthy appearing, comfortable, no acute distress and well developed Orientation: Patient oriented x3 Limitations: No limitations Head: Normal to inspection Ears: Hearing grossly normal bilaterally Nose: Normal external nose present Face and sinus: Normal facial exam Eyes: Appearance normal, both eyes and all related structures Neck: Normal visual inspection and Yes full ROM Respiratory: Normal respiratory effort and able to speak in complete sentences. Clear to auscultation bilaterally Cardiovascular: Regular rate and rhythm. Normal S1 and S2 GI: Normal to inspection. Soft to palpation and nontender Skin: No rashes or lesions noted Neuro: Patient oriented x3 Extremities: Normal to inspection Results Plan - Schedule a follow-up appointment in approximately six months to reassess the patient's mental health status and the effectiveness of the current management plan. Patient was informed and verbally consented to the use of an ambient scribe for clinic note documentation during this visit. Discussion Notes During the consultation, we reviewed the patient?s current state in managing anxiety and depression following her ?s passing three years prior. Her progress appears stable, with improved mental well-being and social connections, particularly with her daughter. We emphasized the importance of continued monitoring and will plan to follow up with her in approximately six months unless her symptoms escalate. No immediate changes to her management plan were required at this time due to her current satisfactory status. She was reassured and encouraged to maintain her social support network. Patient Instructions - Continue to monitor emotional health and utilize social support when needed. - Schedule a follow-up appointment in six months or sooner if symptoms worsen. - Contact healthcare provider if experiencing any new or worsening symptoms. [facility] Medical History Vitamin D deficiency Optic neuritis Migraines Multiple sclerosis Surgical History No pertinent past surgical history Family History Father Mental health disorder Social History Housing: House Patient Tobacco Use Status: Never used Tobacco e-Cigarette/Vaping Use: Never Used Second Hand Smoke Exposure: No service: No Current occupational status: employed Current occupation: [employer] Current occupational exposures/hazards: No Cognitive needs: No Hearing needs: No Vision needs: No Questionnaire PHQ-9 Over the last 2 weeks, how often have you been bothered by any of the following problems? 1. Little interest or pleasure in doing things: more than half the days 2. Feeling down, depressed, or hopeless: more than half the days 3. Trouble falling or staying asleep, or sleeping too much: more than half the days 4. Feeling tired or having little energy: more than half the days 5. Poor appetite or overeating: more than half the days 6. Feeling bad about yourself - or that you are a failure or have let yourself or your family down: more than half the days 7. Trouble concentrating on things, such as reading the newspaper or watching television: more than half the days 8. Moving or speaking so slowly that other people could have noticed. Or the opposite - being so fidgety or restless that you have been moving around a lot more than usual: more than half the days 9. Thoughts that you would be better off or of hurting yourself in some way: more than half the days Total score: 18 Depression Screening Interpretation: Positive (does not want a therapist or psychiatrist currently, denies any si or hi) Depression Screening Follow-up: Existing condition Depression Screening Done: Yes 73901 - PHQ-9 Billing: Yes Source: Developed by Drs. Milton Yanes, Ashley Calderón, Jose Maria Liu and colleagues, with an educational louis from [employer]. Thrive Questionnaire Date Thrive assessed: 12/18/24 I am a: Patient What is your living situation today?: I have a steady place to live Within the past 12 months, did the food you bought not last and you didn't have the money to get more?: Never true Within the past 12 months, did you worry whether your food would run out before you got money to buy more?: Never true Do you have trouble paying for medicines?: No Do you have trouble getting transportation to medical appointments?: No Do you have trouble paying your heating and electricity bill?: No Do you have trouble taking care of your child, family member or friend?: No Do you have trouble with day-to-day activities such as bathing, preparing meals, shopping, managing finances, etc.?: No Are you currently unemployed and looking for a job?: No Are you interested in more education?: No Please select the resources that you would like help with: None Currently or been in a relationship where the following occur: No concerns reported THRIVE Score: 0 AUDIT C Alcohol Use Questionnaire (AUDIT-C) 1. How often do you have a drink containing alcohol?: Monthly or less 2. How many drinks containing alcohol do you have on a typical day when you are drinking?: 1 or 2 3. How often do you have six or more drinks on one occasion?: Never Total Score: 1 Score Reviewed/Action Taken: Yes CAREN-7 AMB Questionnaire CAREN-7 Date CAREN - 7 assessed: 12/18/24 Feeling nervous, anxious, or on edge: 1 = Several days Not being able to stop or control worryin = Several days Worrying too much about different things: 1 = Several days Trouble relaxin = Several days Being so restless that it is hard to sit still: 1 = Several days Becoming easily annoyed or irritable: 1 = Several days Feeling afraid as if something awful might happen: 1 = Several days Total CAREN-7 score (0-4 normal; 5-9 mild; 10-14 moderate; 15-21 severe): 7 Source: Developed by Drs. Milton Yanes, Ashley Calderón, Jose Maria Liu and colleagues, with an educational louis from [employer]. CAREN-7 Assessment Billing CAREN-7 Assessment Tool: CAREN-7 Assessment 11675 Physical exam (Primary Care) Vital Signs: Last Vital Signs Pulse 86 12/18/24 13:09 BP 120/76 12/18/24 13:09 Pulse Ox 98 12/18/24 13:09 Oxygen Delivery Method Room Air 12/18/24 13:09 BMI result Body Mass Index 33.1 Tobacco/Smoking Status: Tobacco use Status Tobacco use date assessed 12/18/24 12/18/24 13:12 Patient Tobacco Use Status Never used Tobacco 12/18/24 13:12 e-Cigarette/Vaping Use Never Used 12/18/24 13:12 PHQ-9: PHQ-9 Score PHQ-9: Total score 18 12/18/24 13:12 Depression Screening Interpretation: Positive (does not want a therapist or psychiatrist currently, denies any si or hi) Depression Screening Follow-up: Existing condition Thrive Assessment: Date of Thrive Assessment Date Thrive assessed 12/18/24 12/18/24 13:12 Currently or been in a relationship where the following occur: No concerns reported Coding Level of Care Code Est Pt Level 3 (38202) Diagnoses Anxiety F41.9 Depression F32.A Additional Codes CAREN-7 Assessment Billing - CAREN-7 Assessment Tool: CAREN-7 Assessment 46149 ([id number]) PHQ-9 - 81376 - PHQ-9 Billing: Yes ([id number]) Assessment & Plan Assessment & Plan (1) Anxiety: Code(s): F41.9 - Anxiety disorder, unspecified Category: Medical (2) Depression: Code(s): F32.A - Depression, unspecified Category: Medical Plan .
--- OUTSIDE RECORDS SUMMARY | 2024-12-18 14:58 | XMS_ITS | Clinical Summary ---
Author Organization [facility] Address [address] [place] [address] Care Team Providers Care Almond Blancher Operator Name Role Phone Abdirahman Mtz Primary Care Provider [phone] Allergies Active Allergy Reactions Criticality Noted Date Comments Dairy 03/25/2021 Gluten 03/25/2021 Tetracycline Diarrhea 02/04/2006 Medications Medication Sig Dispensed Refills Start Date End Date Status medroxyPROGESTERone acetate 150 MG/ML injection Inject 1 mL (150 mg total) into the muscle. 0 08/26/2022 Active gabapentin (NEURONTIN) 300 MG capsule Take 1 capsule (300 mg total) by mouth 3 (three) times a day. 90 capsule 5 08/28/2023 Active Active Problems Problem Noted Date Diagnosed Date Hypersomnia 08/31/2020 Class 2 obesity due to exces s calories without serious comorbidity with body mass index (BMI) of 36.0 to 36.9 in adult 08/31/2020 Anxiety 08/31/2020 Dysthymia 08/31/2020 Allergic rhinitis 08/31/2020 Primary insomnia 08/31/2020 Multiple sclerosis 08/13/2019 Family History Medical History Relation Name Comments COPD Maternal Grandfather No Sig Med Hx Mother Relation Name Status Comments Father Alive Maternal Grandfather Mother Alive Social History Tobacco Use Types Packs/Day Years Used Date Smoking Tobacco: Former Cigarettes 0.1 1 Q uit: 11/20/2004 Smokeless Tobacco: Never Tobacco Cessation:Counseling Given: Not Answered Alcohol Use Standard Drinks/Week Comments Yes 1 (1 standard drink = 0.6 oz pur e alcohol) per month Sex and Gender Information Value Date Recorded Sex Assigned at Female 09/30/2021 9:25 AM EST Gender Identity Female 09/30/2021 9:25 AM EST Sexual Orientation Not on file Job Start Date Occupation Industry Not on file Not on file Not on file Last Filed Vital Signs Vital Sign Reading Time Taken Comments Blood Pressure 135/90 08/21/2024 3:56 PM EDT Pulse 88 08/21/2024 3:56 PM EDT Temperature 36.1 ??C (97 ??F) 08/21/2024 3:56 PM EDT Respiratory Rate 16 08/28/2023 9:27 AM EDT Oxygen Saturation 94% 05/24/2024 3:18 PM EDT Inhaled Oxygen Concentration - - Weight 88 kg (194 lb) 05/24/2024 3:18 PM EDT Height 165.1 cm (5' 5 ) 08/28/2023 9:27 AM EDT Body Mass Index 32.28 08/28/2023 9:27 AM EDT Plan of Treatment Health Maintenance Due Date Last Done Comments Hepatitis B Vaccines (1 of 3 - 3-dose series) 1974 Hepatitis C Screening 1974 COVID-19 Vaccine (#1) 1974 Depression Screening 1986 BMI Counseling 02/04/1992 Preventative Health Evaluation 02/04/1992 DTap / Tdap / Td (1 - Tdap) 1993 Cervical Cancer Screening (P ap Smear) 1995 Colon Cancer Screening (Colonoscopy) 2019 Breast Cancer Screening (Mammogram) 02/04/2024 Shingrix-Zoster Vaccine (1 of 2) 02/04/2024 Influenza Vaccine (#1) 2024 Pneumococcal Vaccine Aged Out No long er eligible based on patient's age to complete this topic RSV Ped < 20 months Aged Out No longe r eligible based on patient's age to complete this topic Care Teams Almond Blancher Operator Relationship Specialty Start Date End Date Abdirahman Mtz [address] [place] [facility] [place] [address] PCP - General Family Medicine 09/30/21
--- OUTSIDE RECORDS SUMMARY | 2024-12-18 14:58 | XMS_ITS | Clinical Summary ---
Author Organization [facility] Address [address] [place] [address] Care Team Providers Care Landcare Facilitator Name Role Phone Abdirahman Mtz NP Primary Care Provider Allergies Active Allergy Reactions Criticality Noted Date Comments Gluten 03/25/2021 Lactase 03/25/2021 Tetracycline Diarrhea 02/04/2006 Medications Medication Sig Dispensed Refills Start Date End Date Status gabapentin (NEURONTIN) 300 mg capsule Take 1 capsule (300 mg total) by mouth 3 (three) times a day. 90 each 5 10/01/2024 Active medroxyPROGESTERone 150 mg/mL injection INJECT 1 ML INTO THE MUSCLE EVERY 3 MONTHS 1 mL 10/07/2024 Active Active Problems Problem Noted Date Diagnosed Date Amenorrhea due to Depo Provera 10/07/2024 Assessment & Plan (10/07/2024 4:23 PM EST): Discussed with Bianca that there is known bone loss associated with Depo Provera use. This is usually reversible, but recommendation would be to stop the Depo 2- 3 years prior to menopause to allow for bone recovery. She voices understanding and agrees. She is worried bleeding will recur. I explained that we could use oral medications if this happens and this would not worsen bone loss. She plans to use the dose today and next dose in 3 months and then stop. If bleeding recurs, she will call and we can start Aygestin. Class 2 obesity due to exces s calories without serious comorbidity with body mass index (BMI) of 36.0 to 36.9 in adult 07/23/2024 Amenorrhea 08/26/2022 Allergic rhinitis 08/31/2020 Anxiety 08/31/2020 Dysthymia 08/31/2020 Hypersomnia 08/31/2020 Primary insomnia 08/31/2020 Multiple sclerosis 08/13/2019 Multiple sclerosis 10/17/2011 Overview (08/27/2024): Dr randall Carpal tunnel syndrome 11/23/2009 Depression 06/03/2009 Overview (08/27/2024): Pt. Seen for in DIRECT MARKETING SPECIALIST for PAP was tearful and stressed. Advised pt. To see behavioral health therapist. Non-suppurative otitis media 08/28/2006 Overview (08/27/2024): IMO update Encounters Date Type Department Care Team Description 10/07/2024 3:45 PM EST Office Visit Obstetrics and Gynecology [address] [phone] Cuca Locke MD Encounter for gynecological examination without abnormal finding (Primary Dx); Amenorrhea due to Depo Provera; Encounter for screening mammogram for malignant neoplasm of breast; Screening for cervical cancer 10/01/[address] [facility] [place] - [address] [place] [address] Regina Dumont PA from Last 3 Months Immunizations Name Administration Dates Next Due Influenza trivalent, with pr eservative (Fluzone; Afluria) 6mo and older 09/13/2020 Surgical History Surgery Date Site/Laterality Comments SECTION 2005 PROCEDURE: [place] DELIVERY ONLY TONSILLECTOMY ADENOIDECTOMY, BILATERAL MYRINGOTOMY AND TUBES PROCEDURE: TN TONSILLECTOMY & ADENOIDECTOMY <AGE 12 CHOLECYSTECTOMY PROCEDURE: TN LAPAROSCOPY SURG CHOLECYSTECTOMY SECTION PROCEDURE: SECTION CHOLECYSTECTOMY 2001 PROCEDURE:CHOLECYSTECTOMY TONSILLECTOMY PROCEDURE:TONSILLECTOMY Medical History Medical History Date Comments Nonsuppurative otitis media, not specified as acute or chronic 08/28/2006 DX:Nonsuppurative otitis media, not specified as acute or chronic Multiple sclerosis (CMS/HCC) 10/17/2011 DX: Multiple sclerosis (HCC) Anxiety DX:Anxiety; COMM ENT: no meds Other specified personal his tory presenting hazards to health(V15.89) 08/2004 DX:Other specifie d personal history presenting hazards to health(V15.89); COMMENT: ? Multiple sclerosis (CMS/HCC) 2010 DX: Multiple sclerosis (HCC) Depression DX:Depression Anxiety DX:Anxiety Allergic rhinitis 08/31/2020 DX:Allergic rh initis Family History Medical History Relation Name Comments COPD Maternal Grandfather No Known Problems Mother Other: Neg DIRECT MARKETING SPECIALIST [place] Other Lung cancer Paternal Grandmother Other cancer Paternal Grandmother lung Breast cancer Neg Hx Colon cancer Neg Hx Ovarian cancer Neg Hx Pancreatic cancer Neg Hx Prostate cancer Neg Hx Uterine cancer Neg Hx Relation Name Status Comments Father Alive Maternal Grandfather Mother Alive Other Paternal Grandmother Social History Tobacco Use Types Packs/Day Years Used Date Smoking Tobacco: Former Cigarettes Q uit: 11/20/2004 Smokeless Tobacco: Never Tobacco Cessation:Counseling Given: Not Answered Alcohol Use Standard Drinks/Week Comments Yes 1 (1 standard drink = 0.6 oz pur e alcohol) Sex and Gender Information Value Date Recorded Sex Assigned at Not on file Gender Identity Not on file Sexual Orientation Not on file Job Start Date Occupation Industry Not on file Not on file Not on file Obstetrics History Para Term AB IAB SAB Ectopic Multiple Livin g Live Births 3 1 Date Outcome GA Total Labor Labor/2nd/3rd Weight Sex Type Anes PTL Amanda A1 A5 Name Clin Last Filed Vital Signs Vital Sign Reading Time Taken Comments Blood Pressure 112/78 10/07/2024 3:54 PM EST Pulse 98 10/07/2024 3:54 PM EST Temperature - - Respiratory Rate 16 10/07/2024 3:54 PM EST Oxygen Saturation - - Inhaled Oxygen Concentration - - Weight 93.7 kg (206 lb 9.6 oz) 10/07/2024 3:54 P M EST Height 165.1 cm (5' 5 ) 10/07/2024 3:54 PM EST Body Mass Index 34.38 10/07/2024 3:54 PM EST Plan of Treatment Upcoming Encounters Date Type Department Care Team (Late st Contact Info) Description 12/30/2024 4:00 PM EST Clinical Support Obstetrics and Gynecology [address] [phone] 03/21/2025 4:00 PM EDT Office Visit [facility] [address] [place] [address] Regina Dumont, YANA [address] [place] [address] for [place] [address] Health Maintenance Due Date Last Done Comments DTaP,Tdap,and Td Vaccines (1 - Tdap) 1993 Hepatitis B Vaccines (1 of 3 - 19+ 3-dose series) 1993 Cholesterol Screening (Lipid Panel) 08/05/2020 Colorectal Cancer Screening: Colonoscopy 08/05/2020 Depression Screening 08/05/2020 HIV Screening 08/05/2020 Social Influencers of Health Screening 08/05/2020 Breast Cancer Screening 06/11/2023 06/11/2021 Zoster Vaccines (1 of 2) 02/04/2024 COVID-19 Vaccine ( - 2023-2 5 season) 2024 Influenza Vaccine (#1) 2024 09/13/2020 Cervical Cancer Screening: HPV 10/07/2029 1 12/07/2023, 11/18/2019 Hepatitis C Screening Completed 01/30/2010 HIB Vaccines Aged Out No longer eligi ble based on patient's age to complete this topic HPV Vaccines Aged Out No longer eligi ble based on patient's age to complete this topic Hepatitis A Vaccines Aged Out No long er eligible based on patient's age to complete this topic IPV Vaccines Aged Out No longer eligi ble based on patient's age to complete this topic MMR Vaccines Aged Out No longer eligi ble based on patient's age to complete this topic Meningococcal ACWY Vaccine Aged Out N o longer eligible based on patient's age to complete this topic Pneumococcal Vaccine: Pediatrics (0 to 5 Years) and At-Risk Patients (6 to 64 Years) Aged Out No longer eligible b ased on patient's age to complete this topic RSV Immunization Patients Under 20 months Aged Out No longer eligible b ased on patient's age to complete this topic Varicella Vaccines Aged Out No longer eligible based on patient's age to complete this topic Procedures Procedure Name Priority Date/Time Associated Diagnosis Comments PAP SMEAR Routine 10/07/2024 4:30 PM EST Screening for cervical cancer HPV WITH REFLEX GENOTYPE Routine 10/07/2024 4:30 PM EST Screening for cervical cancer SCREENING MAMMOGRAPHY BI 2-VIEW BREAST INC CAD Routine 06/11/2021 3:20 PM EDT Encounter for other screening for malignant neoplasm of breast HM HEPATITIS C SCREENING Routine 01/30/2010 from Last 3 Months or Most Recently Relevant to Health Maintenance Results * HPV with reflex genotype (10/07/2024 4:30 PM EST) HPV Negative Negative LAB MICROBIOLOGY METHOD 10/10/2024 2:51 PM [facility] Broom Cervix uteri structure / Unknown 10/07/2024 4:30 PM EST 10/09/2024 10:44 AM EST Cuca Locke MD LAB MOLECULAR DIAGN OSTICS ORDERABLES [facility] [address] [place] [address], * Pap Smear (10/07/2024 4:30 PM EST) Interpretation Negative for intraepithelial lesion or malignancy 10/15/2024 5:06 PM EST [facility] General Categorization Negative 10/15/2024 5:06 PM EST [facility] Other Findings Atrophy 10/15/2024 5:06 PM EST [facility] Specimen Adequacy Satisfactory for evaluation 10/15/2024 5:06 PM EST [facility] Pap Methodology Liquid Based Pap Test 10/15/2024 5:06 PM [facility] Disclaimer The Pap test is a screening test which carries an inherent false negative rate. These test results should be correlated with the patient's clinical findings and history. This Pap test was processed using an automated screening system. Technical cytopathology services provided by [facility], at [address] [place] [address] (CLIA # [id number]/Jonathon Ferrell MD, Client Finance Analyst.) 10/15/2024 5:06 PM EST [facility] Console Pap Interpretation Reported 10/15/2024 5:06 PM EST [facility] Broom Cervix uteri structure / Unknown 10/07/2024 4:30 PM EST 10/07/2024 4:30 PM EST Cuca Locke MD LAB CYTOLOGY ORDERA BLES [facility] [address] [place] [address], * SCREENING MAMMOGRAPHY BI 2-VIEW BREAST INC CAD (06/11/2021 3:20 PM EDT) Anatomical Region Laterality Modality Radiographic Lauren ging 11/18/2019 3:41 PM EST Narrative 06/14/2021 9:01 AM EDT This is a summary report. The complete report is available in the patient's medical record. If you cannot access the medical record, please contact the sending organization for a detailed fax or copy. Exam: Screening mammogram Findings: Digital bilateral full-field screening mammography is performed with tomosynthesis and interpreted with the aid of computer-aided detection. ??Comparison is made with 03/14/2013. Breast parenchyma is heterogeneously dense, limiting mammographic sensitivity. ??No new suspicious mass, architectural distortion, or suspicious calcifications. Impression: No mammographic evidence of malignancy. BI-RADS 1 - negative Procedure Note Lynnette Guy MD - 11/08/2022 This is a summary report. The complete report is available in thepatient's medical record. If you cannot access the medical record, pleasecontact the sending organization for a detailed fax or copy. Exam: Screening mammogram Findings: Digital bilateral full-field screening mammography is performedwith tomosynthesis and interpreted with the aid of computer-aideddetection. Comparison is made with 03/14/2013. Breast parenchyma is heterogeneously dense, limiting mammographicsensitivity. No new suspicious mass, architectural distortion, orsuspicious calcifications. Impression: No mammographic evidence of malignancy. BI-RADS 1 - negative Cuca Locke MD IMG XR PROCEDURES * Hepatitis C Screening (01/30/2010) Hepatitis C Screening abstracted Historical Provider MD HARVEY Cooley from Last 3 Months or Most Recently Relevant to Health Maintenance Care Teams Landcare Facilitator Relationship Specialty Start Date End Date Abdirahman Mtz NP [address] [facility] CLAUDINE Rodriguez PCP - General Family Medicine 09/30/21
--- OUTSIDE RECORDS SUMMARY | 2024-12-18 14:58 | XMS_ITS | Encounter Summary ---
Author Organization [facility] Address [address] [place] [address] Care Team Providers Care Music Therapist [employer] Name Role Phone Abdirahman Mtz NP Primary Care Provider Encounter Details Date Type Department Care Team (Late st Contact Info) Description 08/21/2024 3:46 PM EDT Hospital Encounter TH HISTORIC ENCOUNTERS EASTERN CONVERSION ONLY Regina Dumont, YANA [address] [place] [address] [place] [address] Social History Tobacco Use Types Packs/Day Years Used Date Smoking Tobacco: Former Cigarettes Q uit: 11/20/2004 Smokeless Tobacco: Never Alcohol Use Standard Drinks/Week Comments Yes 1 (1 standard drink = 0.6 oz pur e alcohol) Sex and Gender Information Value Date Recorded Sex Assigned at Not on file Gender Identity Not on file Sexual Orientation Not on file Job Start Date Occupation Industry Not on file Not on file Not on file documented as of this [...] YANA Ramirez - 08/21/2024 4:00 PM EDT [facility]: [place] HPI: [...] discuss implication of enhancing lesion in the OCCUPATIONAL THERAPY AIDE indicating active disease. I strongly recommended addition [...] 40 minutes. The majority of the actual [id number] visit was spent counseling the patient with respect to the current neurological picture. Regina Dumont PA-C documented in this encounter Plan of Treatment Upcoming Encounters Date Type Department Care Team (Late st Contact Info) Description 12/30/2024 4:00 PM EST Clinical Support Obstetrics and Gynecology - [address] [phone] 03/21/2025 4:00 PM EDT Office Visit [facility] [place] - [address] [place] [address] Regina Dumont PA [address] [facility] [place] [address] documented as of this encounter Visit Diagnoses Not on filedocumented in this encounter Care Teams Music Therapist [employer] Relationship Specialty Start Date End Date Abdirahman Mtz NP [address] [place], [place] PCP - General Family Medicine 09/30/21 documented as of this encounter
== END 2024-12-18 14:47 | disposition home or self-care (01) ==
PROVIDERS: PCP Nurse Practitioner Family; Visit Provider Nurse Practitioner Family
DX: F41.9 Anxiety disorder, unspecified (principal); F32.A Depression, unspecified

== ENCOUNTER → 2024-12-18 12:52 | Outpatient (BNVA) | payer BC, SELFPAY | PROVIDERS: PCP Nurse Practitioner Family; Visit Provider Nurse Practitioner Family | DX: F41.9 Anxiety disorder, unspecified (principal); F32.A Depression, unspecified | CPT/HCPCS: 96127 ==

== ENCOUNTER 2025-02-15 19:34 | Emergency (ER) | payer BC, SELFPAY ==
--- NOTE | ~2025-02-15 | XR_ITS ---
CLINICAL HISTORY: trauma, metal to left first digit 3 view left hand Comparison: None Findings: No fractures or dislocations. No significant loss of joint space or osteophytes. No erosions. No radiopaque foreign body. IMPRESSION: 1. No acute findings This document has been electronically signed by: Ranjit Mak MD on 02/15/2025 20:52:26
[2025-02-15 19:42] VITALS: BP 118/80; PULSE 79; RESP 16; TEMP 37.2; O2SAT 98; BMI 31.9
--- NOTE | 2025-02-15 19:42 | ED_ITS ---
HPI - General Adult General Chief complaint: Skin/Abscess/Foreign Body Stated complaint: left hand laceration Time Seen by Provider: 02/15/25 20:57 Source: patient Mode of arrival: ambulatory Limitations: no limitations History of Present Illness ED Provider: Dr. Kvng Oneal HPI narrative: 50-year-old female who presents emergency department for evaluation of the laceration to the thenar eminence of the left thumb. She states that she was reaching under the sink and scraped her hand on a metal scrub brush. Patient states that she applied immediate pressure to stop the wound and then came to the emergency department for evaluation. Patient was not know when her last tetanus shot was given. Related Data Home Medications ?Medication ?Instructions ?Recorded ?Confirmed gabapentin 300 mg capsule 300 mg PO TID 11/24/21 10/28/24 medroxyprogesterone 150 mg/mL mg IM 11/24/21 10/28/24 intramuscular suspension Previous Rx's ?Medication ?Instructions ?Recorded scopolamine base 1 mg over 3 days 1 patch transdermal Q3D PRN motion 05/01/24 transdermal patch sickness #10 ea semaglutide (weight loss) 0.25 0.25 mg (0.5 mL) subcut QWEEK #2 mL 10/28/24 mg/0.5 mL subcutaneous pen injector (Wegovy) Allergies Allergy/AdvReac Type Severity Reaction Status Date / Time tetracycline Allergy Intermediate diarrhea Verified 02/15/25 19:44 [facility] Past Medical History Medical History Vitamin D deficiency Optic neuritis Migraines Multiple sclerosis Surgical History No pertinent past surgical history Family History Family History Father Mental health disorder Social History Social History Housing: House Patient Tobacco Use Status: Never used Tobacco e-Cigarette/Vaping Use: Never Used Second Hand Smoke Exposure: No Advance Directives: No Advance Directives Information Provided: No Do you have a plan to hurt others: No Plan service: No Current occupational status: employed Current occupation: [employer] Current occupational exposures/hazards: No Cognitive needs: No Hearing needs: No Vision needs: No Physical Exam ED Vital Signs: Vital Signs - 24 hr 02/15/25 19:42 Temperature 98.9 F Pulse Rate 79 Respiratory Rate 16 Blood Pressure 118/80 Pulse Oximetry 98 Oxygen Delivery Method Room Air BMI result Body Mass Index 31.9 Vital signs were normal Exam, Left hand: Left thumb thenar eminence has a 1.5 cm C-shaped laceration which is a full skin thickness. Patient has normal opponens, okay sign, range of motion of the thumb. Patient has a normal sensory exam and her thumb is neurovascularly intact Course Course Course Narrative: Medical screening exam performed. Please refer to detailed history, exam, evaluation, and management by primary provider. 50-year-old female pulled on a metal scouring pad causing laceration to her left palm, thumb. Last tetanus. We will update today. Check x-ray. Suture. Medications Administered Discontinued Medications Generic Name Dose Route Start Last Admin Trade Name Freq PRN Reason Stop Dose Admin Diphtheria/Tetanus/Acell Pertussis 0.5 ml 02/15/25 19:43 02/15/25 21:37 Diphth,Pertus(Acell),Tet Adult 0.5 Ml Syringe IM 02/15/25 19:44 0.5 ml .ONCE ONE Administration Lidocaine HCl 5 ml 02/15/25 21:08 02/15/25 21:37 Lidocaine Hcl 1 % Mpf 5 Ml Vial INFILTRATI 02/15/25 21:09 5 ml ONCE STA Administration Lidocaine HCl 5 ml 02/15/25 21:08 02/15/25 21:37 Lidocaine Hcl 1 % Mpf 5 Ml Vial INFILTRATI 02/15/25 21:09 5 ml ONCE ONE Administration Procedures Laceration Left thumb thenar eminence laceration: Site: hand (Left thumb thenar eminence) Side (If applicable): left Description: flap Depth: simple, single layer Local Anesthetic: lidocaine 1% Amount of anesthesia used (mL): 10 Pre-repair: wound explored, irrigated extensively (200 cc of normal saline under pressure was used to irrigate the wounds) and wound margins revised (Wound margins were undermined) Skin layer closed with: nylon Size (cm): 4-0 Number of sutures: 7 Technique: simple, interrupted Medical Decision Making Medical Decision Making MDM Narrative: 50-year-old female who presents emergency department for evaluation of a 1.5 cm C-shaped laceration to the left thumb thenar eminence that occurred 30 minutes prior to coming to the emergency department. She was reaching under sink and cut her thumb on a metal scrub brush. Patient was stop the bleeding at home with pressure. Vital signs were normal. Physical examination revealed a C- shaped laceration which she was full skin thickness which required suture repair. Differential diagnosis: ?Includes but is not limited to laceration, tendon injury, ligament injury, foreign body Course: My independent interpretation of the patient's three-view x-ray of her hand revealed no acute fracture, no obvious foreign body seen Patient was laceration was repaired, please see the procedure note. Wound was dressed with bacitracin, nonstick dressing and pressure Kerlix dressing. Patient was discharged home with printed and verbal instructions. She was given a Tdap vaccination here in the emergency department. Admission/Observation Consideration of admission/observation: Escalation of care including admission/observation considered (No) Radiology Impression Discussion of test interpretation with radiology: I have reviewed the radiologist's reading. Radiologist Impression: 3 view left hand Comparison: None Findings: No fractures or dislocations. No significant loss of joint space or osteophytes. No erosions. No radiopaque foreign body. IMPRESSION: 1. No acute findings This document has been electronically signed by: Ranjit Mak MD on 02/15/2025 20:52:26 Discharge Plan Discharge Clinical Impression: Laceration of left thumb Patient Disposition: Home, Self-Care Instructions: Laceration (ED) Additional Instructions: Your laceration was closed with non dissolvable sutures. You have a total of 7 sutures in the wound. The stitches need to be removed in 7-10 days. Your doctor should be able to remove the stitches if not an urgent care or the emergency department can remove the stitches for you. Apply bacitracin twice a day until the stitches come out. Keep the wound covered for 24-48 hours. Watch for signs of infection which include redness around the wound, red streaks going up the hand, drainage of pus, increased pain Take ibuprofen 200 mg pills, 2 pills every 6 hours as needed for pain or fever. Take Tylenol (acetaminophen) 500 mg pills, 2 pills every 6 hours as needed for pain or fever. Follow-up with your doctor in 2 days. Please return to the emergency department if your symptoms get worse or if you develop any symptoms that are concerning to you. You received a tetanus, diphtheria and pertussis vaccination (Tdap). This vaccination is good for 5 years. Between 5 and 10 years, if you get a contaminated cut to your skin, you will need a repeat tetanus shot. After 10 years you will need a booster shot. Prescriptions: No Action medroxyprogesterone 150 mg/mL suspension IM gabapentin 300 mg capsule 300 mg PO TID scopolamine base 1 mg over 3 days patch 3 day 1 patch transdermal Q3D PRN (Reason: motion sickness) Qty: 10 0RF Wegovy 0.25 mg/0.5 mL pen injector 0.25 mg subcut QWEEK Qty: 2 0RF Rx Instructions: administer weeks 1 through 4 of therapy Interventions: ED Discharge Assessment Last Done: 02/15/25 22:05 Discharge Date/Time: 02/15/25 22:07 Print Language: Wolof
[2025-02-15] MEDS: Lidocaine HCl 1 % MPF 5 ML VIAL INFILTRATI ×2 (21:37)
[2025-02-15] MEDS: Diphth,Pertus(ACell),Tet Adult 0.5 ML SYRINGE IM (21:37)
[2025-02-15 21:42] VITALS: BP 119/79; PULSE 82; RESP 18; TEMP 36.6; O2SAT 99
--- NOTE | 2025-02-15 22:04 | PC.NURSE ---
7 sutures applied to lac. Bacitracin and DSD applied and patient tolerated procedure
[2025-02-15 22:05] VITALS: BP 119/79; PULSE 82; RESP 18; TEMP 36.6; O2SAT 99
== END 2025-02-15 22:07 | disposition home or self-care (01) ==
PROVIDERS: Emergency Provider Emergency Medicine Emergency Medical Services; PCP Nurse Practitioner Family
DX: S61.012A Laceration without foreign body of left thumb without damage to nail, initial encounter (principal); M79.642 Pain in left hand; W26.9XXA Contact with unspecified sharp object(s), initial encounter; Y93.9 Activity, unspecified; Y92.89 Other specified places as the place of occurrence of the external cause; Y99.8 Other external cause status; Z23 Encounter for immunization; Z79.899 Other long term (current) drug therapy
CPT/HCPCS: 12041; 73130; 90471; 90715; 99283; 99284; J2003

== ENCOUNTER → 2025-02-15 19:40 | Outpatient (BNV) | payer BC, SELFPAY | PROVIDERS: Emergency Provider Emergency Medicine Emergency Medical Services; PCP Nurse Practitioner Family; Visit Provider Radiology Diagnostic Radiology | DX: S61.012A Laceration without foreign body of left thumb without damage to nail, initial encounter (principal) | CPT/HCPCS: 73130 ==

== ENCOUNTER 2025-04-19 13:57 | Outpatient (REF) | payer BC, SELFPAY ==
--- OUTSIDE RECORDS SUMMARY | 2025-04-19 14:00 | XMS_ITS | Clinical Summary ---
Author Organization [facility] Address [address] [place] [address] Care Team Providers Care Registered Nurse Supervisor Name Role Phone Abdirahman Mtz Primary Care Provider [phone] Allergies Active Allergy Reactions Criticality Noted Date [...] age to complete this topic Care Teams Registered Nurse Supervisor Relationship Specialty Start Date End Date Abdirahman Mtz [address] [facility] [place] [address] PCP - General Family Medicine 09/30/21
[2025-04-22 15:32] LABS: A. Phagocytphilium DNA,RT-PCR NOT DETECTED (NOT DETECTED); Babesia Microti DNA, RT-PCR NOT DETECTED (NOT DETECTED); Borrelia Miyamotoi,DNA RT-PCR NOT DETECTED (NOT DETECTED); E.Chaffeensis DNA RT-PCR NOT DETECTED (NOT DETECTED); Lyme(Borrelia ssp)DNA RT-PCR NOT DETECTED (NOT DETECTED)
[2025-04-23 04:27] LABS: Lyme Abs Screen <0.90 index
== END 2025-04-19 13:58 | disposition home or self-care (01) ==
LOC: HO.HMGCLDS 13:57
PROVIDERS: PCP Nurse Practitioner Family; Visit Provider Nurse Practitioner Family
DX: T14.8XXA Other injury of unspecified body region, initial encounter (principal); W57.XXXA Bitten or stung by nonvenomous insect and other nonvenomous arthropods, initial encounter
CPT/HCPCS: 36415; 86617; 86618; 87468; 87469; 87478; 87484; 87798

== ENCOUNTER 2025-09-22 15:19 | Outpatient (REF) | payer BC, SELFPAY ==
--- NOTE | ~2025-09-22 | US_ITS ---
EXAMINATION: US THYROID HISTORY: E04.1 - Nontoxic single thyroid nodule TECHNIQUE: Real-time grayscale ultrasound imaging was performed and images were reviewed. COMPARISON: Comparison is made with the prior examination dated 08/30/2024. FINDINGS: SIZE: The right thyroid lobe measures 5.1 x 1.6 x 1.4 cm. The left thyroid lobe measures 5.1 x 1.2 x 1.9 cm. The isthmus measures 5 mm. FLOW: Flow to the gland is normal. ECHOGENICITY: The echotexture of the gland is homogeneous. NODULES: Multiple nodules are noted as described below: Nodule #: 1 Location: Midportion of the right thyroid lobe measuring 5 x 5 x 6 mm (previously 6 x 3 x 5 mm). Shape: Wider than tall (0 points) Margins: Smooth (0 points) Echotexture: Isoechoic (1 point) Composition: Solid (2 points) Calcifications: None (0 points) Total points: 3 TIRADS: TR3: Mildly suspicious. Nodule #: 2 Location: Lower pole of the right thyroid lobe measuring 1.6 x 1.3 x 1.0 cm (previously 1.6 x 1.4 x 1.1 cm). Shape: Taller than wide (3 points) Margins: Smooth (0 points) Echotexture: Hypoechoic (2 points) Composition: Solid (2 points) Calcifications: None (0 points) Total points: 7 TIRADS: TR5: Highly suspicious. Nodule #: 3 Location: Left upper pole measuring 4 x 2 x 5 mm (not seen previously). Shape: Wider than tall (0 points) Margins: Smooth (0 points) Echotexture: Hypoechoic (2 points) Composition: Solid (2 points) Calcifications: None (0 points) Total points: 4 TIRADS: TR4: Moderately suspicious. US/US thyroid IMPRESSION: Stable dominant nodule at the lower pole of the right thyroid lobe, previously biopsied on 10/02/2024 and demonstrated to be benign. ACR TI-RADS Guidelines TR1 (0 points): Benign. No follow-up or biopsy required TR2 (2 points): Not Suspicious. No biopsy or follow up indicated TR3 (3 points): Mildly Suspicious. FNA if >= 2.5 cm, Follow if >= 1.5 cm TR4 (4-6 points): Moderately Suspicious. FNA if >= 1.5 cm, Follow if >= 1.0 cm TR5 (>=7 points): Highly Suspicious. FNA if >= 1.0 cm, Follow if >= 0.5 cm Electronically signed by: Milton Echeverria MD 09/23/2025 07:00 AM [place]
--- OUTSIDE RECORDS SUMMARY | 2025-09-22 16:36 | XMS_ITS | Clinical Summary ---
Author Organization [facility] Address [address] [place] [address] Care Team Providers Care Special Assemblies Supervisor Name Role Phone Abdirahman Mtz Primary Care Provider [phone] Allergies Active Allergy Reactions Criticality Noted Date [...] 88 08/21/2024 3:56 PM EDT Temperature 36.1 C (97 F) 08/21/2024 3:56 PM EDT Respiratory Rate 16 [...] (1 of 2) 02/04/2024 Influenza Vaccine (#1) 2025 Pneumococcal Vaccine Aged Out No long er eligible based on patient's age to complete this topic RSV Ped < 20 months Aged Out No longe r eligible based on patient's age to complete this topic Care Teams Special Assemblies Supervisor Relationship Specialty Start Date End Date Abdirahman Mtz [address] [facility] [place] [id number] PCP - General Family Medicine 09/30/21
== END 2025-09-22 15:20 | disposition home or self-care (01) ==
LOC: HO.HMGCX 15:19
PROVIDERS: PCP Nurse Practitioner Family; Visit Provider Student in an Organized Health Care Education/Training Program
DX: E04.1 Nontoxic single thyroid nodule (principal)
CPT/HCPCS: 76536

== ENCOUNTER → 2025-09-22 15:24 | Outpatient (BNV) | payer BC, SELFPAY | PROVIDERS: PCP Nurse Practitioner Family; Visit Provider Radiology Diagnostic Radiology | DX: E04.1 Nontoxic single thyroid nodule (principal) | CPT/HCPCS: 76536 ==

== ENCOUNTER 2025-10-29 06:21 | Outpatient (REF) | payer BC, SELFPAY ==
--- OUTSIDE RECORDS SUMMARY | 2024-08-21 14:46 | XMS_ITS | Encounter Summary ---
Author Organization [facility] Address [address] [place] [address] Care Team Providers Care Solderer Dipper Name Role Phone Abdirahman Mtz NP Primary Care Provider [phone] Encounter Details Date Type Department Care Team (Late st Contact Info) Description 08/21/2024 3:46 PM EDT Hospital Encounter [facility] HISTOR[facility]NCOUNTERS [facility] ONLY Regina Dumont, [address] [place] [id number] Social History Tobacco Use Types Packs/Day Years Used Date Smoking Tobacco: Former Cigarettes 0.1 Q uit: 11/20/2004 Smokeless Tobacco: Never Alcohol Use Standard Drinks/Week Comments Yes 1 (1 standard drink = 0.6 oz pur e alcohol) Comments No Sex and Gender Information Value Date Recorded Sex Assigned at Not on file Legal Sex Female 7:35 PM EDT Gender Identity Not on file Sexual Orientation Not on file documented as of this encounter Last Filed Vital Signs Vital Sign Reading Time Taken Comments Blood Pressure 135/90 08/21/2024 3:56 PM EDT Sit ting Left arm Pulse 88 08/21/2024 3:56 PM EDT Temperature - - Respiratory Rate - - Oxygen Saturation - - Inhaled Oxygen Concentration - - Weight 88 kg (194 lb) 05/24/2024 3:18 PM EDT Height 165.1 cm (5' 5 ) 08/28/2023 9:27 AM EDT Body Mass Index 32.28 08/28/2023 9:27 AM EDT documented in this encounter Progress Notes * YANA Ramirez - 08/21/2024 4:00 PM EDT [facility] CC: MS HPI: Patient is a 49 y.o. year old female who presents for follow-up regarding ongoing management of multiple sclerosis. Disease summary/review: Year of diagnosis:??2010 Previous therapies:??Tecfidera, Gilenya?? Current therapy:??none Disease course:??relapsing Last relapse/steroids:??April 2018 ??Presence of oligoclonal bands in CSF: per she did spinal tap was inflammatory we will request results JCV positive 09/2021 0.92 Last MRI brain and cervical spine 07/2024: Supratentorial and infratentorial white matter lesions are unchanged allowing for differences in technique. No new definite lesions or enhancing intracranial lesions. Multiple T2 bright lesions within the cervical spinal cord and visualized upper thoracic cord are similar. The lesion within the right lateral cord at C3 is similar but this now enhances compatible with an active lesion. 15 mm nodular lesion related to the posterior margin of the right lobe of the thyroid gland. Given the size of the finding, correlation is recommended per ACR White paper guidelines. MRI thoracic spine 01/02/2021 no signal abnormality Interim History: Patient presents for follow up visit to discuss recent MRI results. She is not on any disease-modifying therapy. Patient has seen her MRI reports and is aware of new enhancing cervical lesion. She states that sheis completely symptom-free. Specifically, she denies problems/symptoms involving balance, gait, spasticity, sensation, weakness, bowel or bladder function. She is feeling well. She states that she has no known history of thyroid problems/lesion. Last office visit history reviewed: She states that she has been well in general. She continues to note intermittent increase in fatigue especially during times of stress. Balance/gait remains stable as does bowel/bladder function. Review of Systems Constitutional: Positive for fatigue. All other systems reviewed and are negative. Patient Active Problem List Diagnosis SNOMED CT(R) ??? Multiple sclerosis (HCC) MULTIPLE SCLEROSIS ??? Hypersomnia HYPERSOMNIA ??? Class 2 obesity due to excess calories without serious comorbidity with body mass index (BMI) of 36.0 to 36.9 in adult OBESITY CAUSED BY ENERGY IMBALANCE ??? Anxiety ANXIETY ??? Dysthymia DYSTHYMIA ??? Allergic rhinitis ALLERGIC RHINITIS ??? Primary insomnia PRIMARY INSOMNIA Current Outpatient Medications: ??? gabapentin (NEURONTIN) 300 MG capsule, Take 1 capsule (300 mg total) by mouth 3 (three) times aday., Disp: 90 capsule, Rfl: 5 ??? medroxyPROGESTERone acetate 150 MG/ML injection, Inject 1 mL (150 mg total) into the muscle., Disp: , Rfl: Neuro Exam BP 135/90 (BP Location: Left arm, Patient Position: Sitting) Pulse 88 Temp 97 ??F (36.1 ??C) (Temporal) There is no height or weight on file to calculate BMI. General: A&Ox3 Cranial Nerves: PERRL, EOMI without nystagmus, facial strength symmetric, no facial droop, tongue protrusion midline, speech clear, shoulder shrug symmetric Motor: strength 5/5 bilateral UE & LE Sensory: temperature, light touch, and vibratory sense intact throughout Reflexes: 2+/4+ bilateral biceps, 2+/4+ bilateral patellar Cerebellar: FTN without dysmetria or ataxia bilaterally, normal Burak, no dysdiadochokinesia, negative Rhomberg Gait: normal stride, non-ataxic, no circumduction 25 foot timed walk: 4.9, 5.0 A/P: Multiple Sclerosis: ?? Bianca is a 49-year-old female with relapsing MS not treated with DMT (pt choice) presenting todayto discuss enhancing cervical cord lesion noted on recent MRI. She states that she is feeling well and denies any neurological symptoms whatsoever. We will avoid steroid treatment since patient is asy mptomatic, however we did discuss implication of enhancing lesion in the REAMER HAND indicating active disease. I strongly recommended addition of disease modifying therapy. We reviewed risks of untreated MSincluding increased odds of new demyelinating lesions which could lead to severe symptoms and/or permanent disability, increased trajectory of disability progression. Patient continues to decline DMT. She does agree to repeat an MRI with and without contrast in 6 months for radiological reassessment and we will plan to do this. She agrees to contact the office in the meantime with any new neurological symptoms. In regards to thyroid lesion, I explained that her PCP may want to order an ultrasound for further investigation. I advised her to contact her PCP to discuss and she agrees to do this. I will forwardresults to Dr. Mtz's office. ?? A. Disease modifying therapy and diagnostic plan: -Patient not interested in disease modifying therapy at this time despite our recommendations to begin a treatment. -Plan to repeat MRI of brain and cervical spine with and without contrast in 6 months (January 2025) ?? B. ??Symptomatic therapy plan: ?? Migraine: Continue gabapentin dosing to 300 mg in a.m. and 600 mg at bedtime. Frequency has improved. ?? Patient was encouraged to call the office with any questions or concerns. Follow up in 6 months or sooner PRN The patient and I discussed the clinical picture during today's appointment. Additional time was spent prior to the actual appointment reviewing records, lab values and imaging results and preparing documentation for today's visit. There was also time spent following the in person visit documenting, arranging for further diagnostic testing and follow-up appointments. The entire time spent in thisprocess was greater than 40 minutes. The majority of the actual [id number] visit was spent counseling the patient with respect to the current neurological picture. Regina Dumont PA-C documented in this encounter Plan of Treatment Not on file documented as of this encounter Visit Diagnoses Not on filedocumented in this encounter Care Teams Solderer Dipper Relationship Specialty Start Date End Date Abdirahman Mtz NP [address], [place] PCP - General Family Medicine 09/30/21 documented as of this encounter
--- OUTSIDE RECORDS SUMMARY | 2025-10-29 06:23 | XMS_ITS | Clinical Summary ---
Author Organization [facility] Prior to 04/19/[address] [place] [address] Care Team Providers Care Activities Leader Name Role Phone Abdirahman Mtz Primary Care Provider [phone] Allergies Active Allergy Reactions Criticality Noted Date [...] age to complete this topic Care Teams Activities Leader Relationship Specialty Start Date End Date Abdirahman Mtz [address] [facility] [place] [address] PCP - General Family Medicine 09/30/21
--- OUTSIDE RECORDS SUMMARY | 2025-10-29 06:24 | XMS_ITS | Encounter Summary ---
Author Organization [facility] Prior to 09/20/2024 Address [address] [place] [address] Care Team Providers Care Care Clinician Name Role Phone Branden Atkinson MD Primary Care Provider Unavail able Heather Heller MD Primary Care Provider Unavailable Juan Garrett MD Primary Care Provider Unava ilMargarita Carr MD Primary Care Provider Unavailab [facility] Pcp Primary Care Provider Unavailabl e Encounter Details Date Type Department Care Team Description 03/02/2013 Telephone OBGYN - [facility] [address] [address] Nadia Milian CNM Social History Tobacco Use Types Packs/Day Years Used Date Smoking Tobacco: Former Cigarettes Q uit: 11/20/2004 Smokeless Tobacco: Never Alcohol Use Standard Drinks/Week Comments Yes 0 (1 standard drink = 0.6 oz pur e alcohol) occassional Sex Assigned at Date Recorded Not on file Job Start Date Occupation Industry Not on file Not on file Not on file documented as of this encounter Miscellaneous Notes * Telephone Encounter - Nadia Milian CNM - 03/02/2013 7:57 AM EDT During last annual exam the pt. Stated that she completed the history questionnaire on mychart and didn't want to go throught the questions again. I am not able to locate her answers. Please look for it and input the data into her chart. If it's not there, please call IT to see if they can find and any suggestions how to retrieve it. Do they recommend pt. Redo it? If so please call pt. And request she redo. Thank you. documented in this encounter Plan of Treatment Not on file documented as of this encounter Visit Diagnoses Not on filedocumented in this encounter Care Teams Care Clinician Relationship Specialty Start Date End Date Branden Atkinson MD PCP - General 05/29/09 08/31/17 Heather Heller MD PCP - General Internal Medicine 09/01/17 Juan Garrett MD PCP - General Internal Medicine 11/18/19 05/25/21 Margarita Soto MD PCP - General Internal Medicine 05/26/21 09/07/21 [facility], Pcp PCP - General Internal Medicine 09/08/21 documented as of this encounter
--- OUTSIDE RECORDS SUMMARY | 2025-10-29 06:24 | XMS_ITS | Encounter Summary ---
Author Organization [facility] Prior to 09/20/2024 Address [address] [place] [address] Care Team Providers Care Track Template Maker Name Role Phone Branden Atkinson MD Primary Care Provider Unavail able Heather Heller MD Primary Care Provider Unavailable Juan Garrett MD Primary Care Provider Unava ilable Margarita Soto MD Primary Care Provider Unavailab [facility] Pcp Primary Care Provider Unavailabl e Encounter Details Date Type Department Care Team Description 03/16/2012 Transfer Records Medical Records [address] [place] [address] Abstract, Provider Social History Tobacco Use Types Packs/Day Years Used Date Smoking Tobacco: Former Cigarettes Q uit: 11/20/2004 Smokeless Tobacco: Never Alcohol Use Standard Drinks/Week Comments Yes 0 (1 standard drink = 0.6 oz pur e alcohol) occassional Sex Assigned at Date Recorded Not on file Job Start Date Occupation Industry Not on file Not on file Not on file documented as of this encounter Plan of Treatment Not on file documented as of this encounter Visit Diagnoses Not on filedocumented in this encounter Care Teams Track Template Maker Relationship Specialty Start Date End Date Branden Atkinson MD PCP - General 05/29/09 08/31/17 Heather Heller MD PCP - General Internal Medicine 09/01/17 Juan Garrett MD PCP - General Internal Medicine 11/18/19 05/25/21 Margarita Soto MD PCP - General Internal Medicine 05/26/21 09/07/21 [facility], Pcp PCP - General Internal Medicine 09/08/21 documented as of this encounter
--- OUTSIDE RECORDS SUMMARY | 2025-10-29 06:24 | XMS_ITS | Clinical Summary ---
Author Organization [facility] Prior to 09/20/2024 Address [address] [facility] [place] [address] Care Team Providers Care Transmitter Operator Name Role Phone [facility], Pcp Primary Care Provider Unavailabl e Allergies Active Allergy Reactions Severity Noted Date Comments Tetracycline Diarrhea 02/04/2006 Medications Medication Sig Dispensed Refills Start Date End Date Status gabapentin (NEURONTIN) 100 MG capsule Take 100 mg by mouth daily. 0 Active medroxyPROGESTERone (DEPO-PROVERA) 150 MG/ML injectionIndications:Enc ounter for surveillance of injectable contraceptive INJECT 1 ML INTO THE MUSCLE EVERY 3 MONTHS 1 mL 1 04/01/2024 Active Active Problems Problem Noted Date Surveillance for Depo-Provera contracept ion 08/26/2022 Last Assessment & Plan: I reviewed with the patient the risk of bone loss with prolonged Depo-Provera contraception, and this may be partially reversible with no documented increased risk for fracture. I recommend that she discontinue Depo a few years prior to menopause to allow bone density to improve prior to menopause when bone density naturally declines. She expressed understanding and adamantly expressed that she would still like to continue with this medication regardless of the risks. I have encouraged her to start calcium with vitamin D prophylactically. Amenorrhea 08/26/2022 Last Assessment & Plan: Estradiol and FSH ordered to assess menopausal status. Multiple sclerosis 10/17/2011 Overview: Dr randall Carpal tunnel syndrome 11/23/2009 Depression 06/03/2009 Overview: Pt. Seen for in EMERGENCY DEPARTMENT RN for PAP was tearful and stressed. Advised pt. To see behavioral health therapist. 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 Overview: IMO update Immunizations Name Administration Dates Next Due Influenza (> 6 Months) 09/13/2020 Family History Medical History Relation Name Comments Neg EMERGENCY DEPARTMENT RN CA Other CA Lung Paternal Grandmother Cancer, Other Paternal Grandmother lung CA Breast Negative Hx CA Colon Negative Hx CA Ovarian Negative Hx Cancer of the Pancreas Negative Hx Cancer of the Prostate Negative Hx Uterine Cancer Negative Hx Relation Name Status Comments Other Paternal Grandmother Social History Tobacco Use Types Packs/Day Years Used Date Smoking Tobacco: Former Cigarettes Q uit: 11/20/2004 Smokeless Tobacco: Never Tobacco Cessation:Counseling Given: Not Answered Alcohol Use Standard Drinks/Week Comments Yes 0 (1 standard drink = 0.6 oz pur e alcohol) occassional Sex Assigned at Date Recorded Not on file Job Start Date Occupation Industry Not on file Not on file Not on file Last Filed Vital Signs Vital Sign Reading Time Taken Comments Blood Pressure 122/81 07/09/2024 3:15 PM EDT Pulse 78 07/09/2024 3:15 PM EDT Temperature 37.2 C (98.9 F) 08/11/2012 8:51 AM EDT Respiratory Rate 14 07/09/2024 3:15 PM EDT Oxygen Saturation 97% 12/20/2011 2:14 PM EST Inhaled Oxygen Concentration - - Weight 88.9 kg (196 lb) 07/09/2024 3:15 PM EDT Height 166.4 cm (5' 5.5 ) 04/28/2020 3:37 PM EDT Body Mass Index 32.12 04/28/2020 3:37 PM EDT Plan of Treatment Health Maintenance Due Date Last Done Comments Covid-19 Vaccine (#1) 1974 DTAP/TDAP/TD (1 - Tdap) 1993 BASELINE HEALTH EXAM 40-64 2014 CHOLESTEROL SCREENING 09/24/2016 09/24/2011 MAMMOGRAM 06/11/2022 06/11/2021, 03/14/2013 CERVICAL CANCER SCREENING 11/18/20222018, 03/01/2013, 04/17/2011, Additional history exists COLON CANCER SCREENING 02/04/2024 SHINGLES VACCINE (1 of 2) 02/04/2024 BMI CHECK/ADVISE 11/20/2024 08/25/2022, 10/2017, 08/29/2016, Additional history exists INFLUENZA (#1) 2025 09/13/2020 PNEUMOCOCCAL VACCINE FOR HIG H RISK PATIENTS (#1) 2039 HEPATITIS C SCREENING Completed 01/30/2010 Care Teams Transmitter Operator Relationship Specialty Start Date End Date [facility], Pcp PCP - General Internal Medicine 09/08/21
--- OUTSIDE RECORDS SUMMARY | 2025-10-29 06:24 | XMS_ITS | Encounter Summary ---
Author Organization [facility] Prior to 09/20/2024 Address [address] [place] [address] Care Team Providers Care Cae Engineer Name Role Phone Branden Atkinson MD Primary Care Provider Unavail able Heather Heller MD Primary Care Provider Unavailable Juan Garrett MD Primary Care Provider Unava ilable Margarita Soto MD Primary Care Provider Unavailab [facility] Primary Care Provider Unavailabl e Encounter Details Date Type Department Care Team Description 12/23/2011 Graphic Design Intern Report Medical Records [address] [place] [address] Yevgeniy Arceo MD Social History Tobacco Use Types Packs/Day Years [...] on filedocumented in this encounter Care Teams Cae Engineer Relationship Specialty Start Date End Date Branden Atkinson MD PCP - General 05/29/09 08/31/17 Heather Heller MD PCP - General Internal Medicine 09/01/17 Juan Garrett MD PCP - General Internal Medicine 11/18/19 05/25/21 Margarita Soto MD PCP - General Internal Medicine 05/26/21 09/07/21 [facility], Pcp PCP - General Internal Medicine 09/08/21 documented as of this encounter
--- OUTSIDE RECORDS SUMMARY | 2025-10-29 06:24 | XMS_ITS | Encounter Summary ---
Author Organization [facility] Prior to 09/20/2024 Address [address] [place] [address] Care Team Providers Care Data Developer Name Role Phone Branden Atkinson MD Primary Care Provider Unavail able Heather Heller MD Primary Care Provider Unavailable Juan Garrett MD Primary Care Provider Unava ilable [facility]arita Soto MD [facility] Care Provider Unavailabl e Encounter Details Date Type Department Care Team Description 04/09/2014 Investigator Welfare Report Medical Records [address] [place] [address] [place], [place] [address] Social History Tobacco Use Types Packs/Day Years [...] on filedocumented in this encounter Care Teams Data Developer Relationship Specialty Start Date End Date Branden Atkinson MD PCP - General 05/29/09 08/31/17 Heather Heller MD PCP - General Internal Medicine 09/01/17 Juan Garrett MD PCP - General Internal Medicine 11/18/19 05/25/21 Margarita Soto MD PCP - General Internal Medicine 05/26/21 09/07/21 [facility], Pcp PCP - General Internal Medicine 09/08/21 documented as of this encounter
--- OUTSIDE RECORDS SUMMARY | 2025-10-29 06:24 | XMS_ITS | Encounter Summary ---
Author Organization [facility] Prior to 09/20/2024 Address [address] [place] [address] Care Team Providers Care Towboat Captain Name Role Phone Branden Atkinson MD Primary Care Provider Unavail able Heather Heller MD Primary Care Provider Unavailable Juan Garrett MD Primary Care Provider Unava ilable Margarita Soto MD Primary Care Provider Unavailab [facility] Pcp Primary Care Provider Unavailabl e Encounter Details Date Type Department Care Team Description 01/03/2013 Scaffold Erector Report Medical Records [address] [place] [address] Tremayne Lofton MD Social History Tobacco Use Types Packs/Day [...] on filedocumented in this encounter Care Teams Towboat Captain Relationship Specialty Start Date End Date Branden Atkinson MD PCP - General 05/29/09 08/31/17 Heather Heller MD PCP - General Internal Medicine 09/01/17 Juan Garrett MD PCP - General Internal Medicine 11/18/19 05/25/21 Margarita Soto MD PCP - General Internal Medicine 05/26/21 09/07/21 [facility], Pcp PCP - General Internal Medicine 09/08/21 documented as of this encounter
--- OUTSIDE RECORDS SUMMARY | 2025-10-29 06:24 | XMS_ITS | Encounter Summary ---
Author Organization [facility] Prior to 09/20/2024 Address [address] [place] [address] Care Team Providers Care Tableau Analyst Name Role Phone Branden Atkinson MD Primary Care Provider Unavail able Heather Heller MD Primary Care Provider Unavailable Juan Garrett MD Primary Care Provider Unava ilable Margarita Soto MD Primary Care Provider Unavailab [facility] Primary Care Provider Unavailabl e Reason for Visit * Reason Comments E-prescribe Rx Request Encounter Details Date Type Department Care Team Description 04/28/2014 Refill OBGYN - [address] [address] Elizabeth Gold MD E-prescribe Rx Request Social History Tobacco Use Types Packs/Day Years [...] encounter Miscellaneous Notes * Telephone Encounter - Kathya Fang R.N. - 04/28/2014 11:40 AM EDT Rx for refill - aura [facility]un[facility] for annual in 02/2013 (used to be [place] pt). Has appt pending with for annual & depo. Needs 1 dose faxed. * Telephone Encounter - Ludmila Tobin - 04/28/2014 8:55 AM EDT WHEN WAS THE PATIENTS LAST ANNUAL EVALUATION ENGINEER EXAM? 03/01/13 Does patient have an upcoming appointment? Yes 04/1014 (THE MEDICATION REQUESTED IS ON THE MED LIST ABOVE) Did you check the Pharmacy information above?: YES Indicate how soon the patient needs the script: BY THE END OF THE DAY Patient would like script to be: E-PRESCRIBED/FAXED TO PHARMACY Is the doctor here today?: NO Can the message wait until the doctor returns?: NO Has the patient been told that the prescription will not be filled until the end of the day? NO Payor: LILIA/PPO POS / Plan: PPO $15 [place] [id number] / Product Type: PPO [id number] documented in this encounter Plan of Treatment Not on file documented as of this encounter Visit Diagnoses Not on filedocumented in this encounter Care Teams Tableau Analyst Relationship Specialty Start Date End Date Branden Atkinson MD PCP - General 05/29/09 08/31/17 Heather Heller MD PCP - General Internal Medicine 09/01/17 Juan Garrett MD PCP - General Internal Medicine 11/18/19 05/25/21 Margarita Soto MD PCP - General Internal Medicine 05/26/21 09/07/21 [facility], Pcp PCP - General Internal Medicine 09/08/21 documented as of this encounter
--- OUTSIDE RECORDS SUMMARY | 2025-10-29 06:24 | XMS_ITS | Encounter Summary ---
Author Organization [facility] Prior to 09/20/2024 Address [address] [place] [address] Care Team Providers Care Group Home Worker Name Role Phone Branden Atkinson MD Primary Care Provider Unavail able Heather Heller MD Primary Care Provider Unavailable Juan Garrett MD Primary Care Provider Unava ilable Margarita Soto MD Primary Care Provider Unavailab [facility] Pcp Primary Care Provider Unavailabl e Encounter Details Date Type Department Care Team Description 11/01/2011 Eye Last Scourer Report Medical Records [address] [place] [id number] Yusfu Joshua MD Social History Tobacco Use Types Packs/Day [...] on filedocumented in this encounter Care Teams Group Home Worker Relationship Specialty Start Date End Date Branden Atkinson MD PCP - General 05/29/09 08/31/17 Heather Heller MD PCP - General Internal Medicine 09/01/17 Juan Garrett MD PCP - General Internal Medicine 11/18/19 05/25/21 Margarita Soto MD PCP - General Internal Medicine 05/26/21 09/07/21 [facility], Pcp PCP - General Internal Medicine 09/08/21 documented as of this encounter
--- OUTSIDE RECORDS SUMMARY | 2025-10-29 06:24 | XMS_ITS | Encounter Summary ---
Author Organization [facility] Prior to 09/20/2024 Address [address] [place] [address] Care Team Providers Care Raise Driller Name Role Phone Branden Atkinson MD Primary Care Provider Unavail able Heather Heller MD Primary Care Provider Unavailable Juan Garrett MD Primary Care Provider Unava ilMargarita Carr MD Primary Care Provider Unavailab [facility] Primary Care Provider Unavailabl e Reason for Visit * Reason Onset Date Comments other 09/06/2011 mri testing. Encounter Details Date Type Department Care Team Description 09/06/2011 Telephone MRI - [address] [address] Lizandro Rios DO other (mri testing.) Social History Tobacco Use Types Packs/Day Years [...] encounter Miscellaneous Notes * Telephone Encounter - Jesús Rodríguez - 09/06/2011 11:53 AM EDT I am removing internal mri order from scheduling report because is claustrophobic and would like totry mri test at [facility] . documented in this encounter Plan of Treatment Not on file documented as of this encounter Visit Diagnoses Not on filedocumented in this encounter Care Teams Raise Driller Relationship Specialty Start Date End Date Branden Atkinson MD PCP - General 05/29/09 08/31/17 Heather Heller MD PCP - General Internal Medicine 09/01/17 Juan Garrett MD PCP - General Internal Medicine 11/18/19 05/25/21 Margarita Soto MD PCP - General Internal Medicine 05/26/21 09/07/21 [facility] PCP - General Internal Medicine 09/08/21 documented as of this encounter
--- OUTSIDE RECORDS SUMMARY | 2025-10-29 06:24 | XMS_ITS | Encounter Summary ---
Author Organization [facility] Prior to 09/20/2024 Address [address] [place] [address] Care Team Providers Care Surface Grinding Machine Hand Name Role Phone Branden Atkinson MD Primary Care Provider Unavail able Heather Heller MD Primary Care Provider Unavailable Juan Garrett MD Primary Care Provider Unava ilable Margarita Soto MD Primary Care Provider Unavailab [facility] Pcp Primary Care Provider Unavailabl e Encounter Details Date Type Department Care Team Description 07/04/2012 SCAN Medical Records [address] [place] [address] Abstract, Provider Social History Tobacco Use Types [...] on filedocumented in this encounter Care Teams Surface Grinding Machine Hand Relationship Specialty Start Date End Date Branden Atkinson MD PCP - General 05/29/09 08/31/17 Heather Heller MD PCP - General Internal Medicine 09/01/17 Juan Garrett MD PCP - General Internal Medicine 11/18/19 05/25/21 Margarita Soto MD PCP - General Internal Medicine 05/26/21 09/07/21 [facility], Pcp PCP - General Internal Medicine 09/08/21 documented as of this encounter
--- OUTSIDE RECORDS SUMMARY | 2025-10-29 06:24 | XMS_ITS | Encounter Summary ---
Author Organization [facility] Prior to 09/20/2024 Address [address] [place] [address] Care Team Providers Care Outboard Motors Experimental Mechanic Name Role Phone Branden Atkinson MD Primary Care Provider Unavail able Heather Heller MD Primary Care Provider Unavailable Juan Garrett MD Primary Care Provider Unava ilMargarita Carr MD Primary Care Provider Unavailab [facility] Pcp Primary Care Provider Unavailabl e Reason for Visit * Reason Onset Date Comments Provider Call Back 04/10/2012 Encounter Details Date Type Department Care Team Description 04/10/2012 Telephone Adult Medicine [address] [address] Branden Atkinson MD Provider Call Back Social History Tobacco Use Types Packs/Day Years [...] encounter Miscellaneous Notes * Telephone Encounter - Louann Akers L.P.N. - 04/10/2012 1:28 PM EDT Pt called * Telephone Encounter - Ben Lion - 04/10/2012 12:55 PM EDT Patient calling - spoke with Sara yesterday regarding MS and would like to speak with nurse again.Has further questions. documented in this encounter Plan of Treatment Not on file documented as of this encounter Visit Diagnoses Not on filedocumented in this encounter Care Teams Outboard Motors Experimental Mechanic Relationship Specialty Start Date End Date Branden Atkinson MD PCP - General 05/29/09 08/31/17 Heather Heller MD PCP - General Internal Medicine 09/01/17 Juan Garrett MD PCP - General Internal Medicine 11/18/19 05/25/21 Margarita Soto MD PCP - General Internal Medicine 05/26/21 09/07/21 [facility], Pcp PCP - General Internal Medicine 09/08/21 documented as of this encounter
--- OUTSIDE RECORDS SUMMARY | 2025-10-29 06:24 | XMS_ITS | Encounter Summary ---
Author Organization [facility] Prior to 09/20/2024 Address [address] [place] [address] Care Team Providers Care Transport Coordinator Name Role Phone Community, Pcp Primary Care Provider Unavailabl e Reason for Visit * Reason Comments E-prescribe Rx Request Encounter Details Date Type Department Care Team Description 10/06/2023 Refill OBGYN - [place] [address] [place] [address] Abelardo Dennis DO E-prescribe Rx Request Social History Tobacco Use [...] encounter Miscellaneous Notes * Telephone Encounter - Radha Leslie R.N. - 10/09/2023 2:00 PM EST Rx pended with refill to get to AG on 02/22/24. Last AG 08/2022. Last prescribed by DR. Dennis. Due for depo inj tomorrow 10/10/23. * Telephone Encounter - Lori Whelan - 10/09/2023 12:23 PM EST WHEN WAS THE PATIENTS LAST ANNUAL FREELANCE PATTERNMAKER EXAM? 08/25/22 Does patient have an upcoming appointment? Yes 02/22/24 (THE MEDICATION REQUESTED IS ON THE MED [...] the end of the day? NO Payor: FREDA/NISHAO POS / Plan: PPO $15 [id number] / Product Type: PPO [id number] documented in this encounter Plan of Treatment Not on file documented as of this encounter Visit Diagnoses Diagnosis Encounter for surveillance of injectable contraceptive Surveillance of other previously prescribed contraceptive method documented in this encounter Care Teams Transport Coordinator Relationship Specialty Start Date End Date Community, Pcp PCP - General Internal Medicine 09/08/21 documented as of this encounter
--- OUTSIDE RECORDS SUMMARY | 2025-10-29 06:24 | XMS_ITS | Encounter Summary ---
Author Organization [facility] Prior to 09/20/2024 Address [address] [place] [address] Care Team Providers Care Client Support Coordinator Name Role Phone Heather Heller MD Primary Care Provider Unavailable Juan Garrett MD Primary Care Provider Unava Margarita Quinn MD [facility] Primary Care Provider Unavailabl e Reason for Visit * Reason Comments E-prescribe Rx Request Encounter Details Date Type Department Care Team Description 06/03/2019 [facility] [address] [place] [address] Frederic Pena, [facility] [address] [place] [address] E-prescribe Rx Request Social History Tobacco Use [...] encounter Miscellaneous Notes * Telephone Encounter - Crystal Ibrahim - 06/03/2019 8:20 AM EDT WHEN WAS THE PATIENTS LAST ANNUAL SAP BUSINESS OBJECTS CONSULTANT EXAM? 03/15/2019 depo Does patient have an upcoming appointment? Yes 06/03/2019 (THE MEDICATION REQUESTED IS ON THE MED [...] the end of the day? NO Payor: FREDA/PPO POS / Plan: PPO $15 [id number] / Product Type: PPO [id number] documented in this encounter Plan of Treatment Not on file documented as of this encounter Visit Diagnoses Diagnosis Surveillance for Depo-Provera contraception- Primary Surveillance of other previously prescribed contraceptive method Encounter for gynecological examination without abnormal finding Routine gynecological examination documented in this encounter Care Teams Client Support Coordinator Relationship Specialty Start Date End Date Heather Heller MD PCP - General Internal Medicine 09/01/17 Juan Garrett MD PCP - General Internal Medicine 11/18/19 05/25/21 Margarita Soto MD PCP - General Internal Medicine 05/26/21 09/07/21 [facility] PCP - General Internal Medicine 09/08/21 documented as of this encounter
--- OUTSIDE RECORDS SUMMARY | 2025-10-29 06:24 | XMS_ITS | Encounter Summary ---
Author Organization [facility] Prior to 09/20/2024 Address [address] [place] [address] Care Team Providers Care Pin Puller Name Role Phone Branden Atkinson MD Primary Care Provider Unavail able Heather Heller MD Primary Care Provider Unavailable Juan Garrett MD Primary Care Provider Unava ilable Margarita Soto MD Primary Care Provider Unavailab [facility] Pcp Primary Care Provider Unavailabl e Encounter Details Date Type Department Care Team Description 05/14/2013 Biomedical Engineering Supervisor Report Medical Records [address] [place] [address] Tremayne Lofton MD Social History Tobacco Use [...] on filedocumented in this encounter Care Teams Pin Puller Relationship Specialty Start Date End Date Branden Atkinson MD PCP - General 05/29/09 08/31/17 Heather Heller MD PCP - General Internal Medicine 09/01/17 Juan Garrett MD PCP - General Internal Medicine 11/18/19 05/25/21 Margarita Soto MD PCP - General Internal Medicine 05/26/21 09/07/21 Community, Pcp PCP - General Internal Medicine 09/08/21 documented as of this encounter
--- OUTSIDE RECORDS SUMMARY | 2025-10-29 06:24 | XMS_ITS | Encounter Summary ---
Author Organization [facility] Prior to 09/20/2024 Address [address] [place] [address] Care Team Providers Care Aircraft Instrument Engineer Name Role Phone Heather Heller MD Primary Care Provider Unavailable Juan Garrett MD Primary Care Provider Unava ilable Margarita Soto MD [facility] Primary Care Provider Unavailabl e Reason for Visit * Reason Comments E-prescribe Rx Request Encounter Details Date Type Department Care Team Description 12/26/2018 Refill OBGYN - [address] [address] Lucas Isabel MD E-prescribe Rx Request Social History Tobacco [...] encounter Miscellaneous Notes * Telephone Encounter - Ritu Riggs R.N. - 12/26/2018 8:37 AM EST Letter sent. * Telephone Encounter - Humera Sanders - 12/26/2018 8:13 AM EST WHEN WAS THE PATIENTS LAST ANNUAL TEST DESK SUPERVISOR EXAM? 12 12 17 Does patient have an upcoming appointment? Yes Depo shot only (THE MEDICATION REQUESTED IS ON THE MED [...] filled until the end of the day? YES Payor: FREDA/PPO POS / Plan: PPO $15 [id number] [id number] / Product Type: PPO [id number] documented in this encounter Plan of Treatment Not on file documented as of this encounter Visit Diagnoses Diagnosis Encounter for gynecological examination without abnormal finding Routine gynecological examination documented in this encounter Care Teams Aircraft Instrument Engineer Relationship Specialty Start Date End Date Heather Heller MD PCP - General Internal Medicine 09/01/17 Juan Garrett MD PCP - General Internal Medicine 11/18/19 05/25/21 Margarita Soto MD PCP - General Internal Medicine 05/26/21 09/07/21 [facility] PCP - General Internal Medicine 09/08/21 documented as of this encounter
--- OUTSIDE RECORDS SUMMARY | 2025-10-29 06:24 | XMS_ITS ---
Author Name [facility] Organization Unknown History of Medication Use Medication Directions Dispensed Refills Start Date End Date Status bupropion HCl XL 300 mg 24 hr tablet, extended release Take 1 tablet every day by oral route in the morning for 90 days. 5 active topiramate XR 50 mg capsule,extended release 24 hr Take 1 capsule twice a day by oral route for 90 days. 5 active medroxyPROGESTERone 150 mg/mL injection INJECT 1 ML INTO THE MUSCLE EVERY 3 MONTHS 5 active gabapentin (NEURONTIN) 300 mg capsule Take 1 capsule (300 mg total) by mouth 3 (three) times a day. 4 active scopolamine 1 mg over 3 days transdermal patch APPLY 1 PATCH TRANSDERMALLY EVERY 3 DAYS NEEDED FOR MOTION SICKNESS 12/31/19 25 completed topiramate XR 50 mg capsule,extended release 24 hr active bupropion HCl XL 300 mg 24 hr tablet, extended release active metformin ER 500 mg tablet,extended release 24 hr active topiramate XR 100 mg capsule,extended release 24 hr active bupropion HCl XL 150 mg 24 hr tablet, extended release Take 1 tablet every day by oral route. active Co Q 10 active gabapentin 300 mg capsule TAKE 1 CAPSULE BY MOUTH THREE TIMES A DAY PRN active medroxyprogesterone 150 mg/mL intramuscular suspension INJECT 1 ML INTO THE MUSCLE EVERY 3 MONTHS active metformin ER 500 mg tablet,extended release 24 hr Take 1 tablet every day by oral route. active topiramate XR 100 mg capsule,extended release 24 hr TAKE 1 CAPSULE BY MOUTH TWICE A DAY FOR 90 DAYS active topiramate XR 25 mg capsule,extended release 24 hr START WITH 1 CAPSULE IN EVENING BEFORE DINNER X 2 WEEKS, THEN 2 CAPSULES IN EVENING BEFORE DINNER. active Allergies Allergen Reaction Severity Comment Documented Date Source Statu s LACTASE 03/25/2021 [facility] active TETRACYCLINE DIARRHEA 02/04/2006 [facility] acti ve GLUTEN [facility]_THSFRAN Problems Problem Status Onset Date Problem Type Date of Resoluti on Source Multiple sclerosis active 2024-12-31 ProblemAct [facility]_FLYTE History of cholecystectomy active 2024-12-31 ProblemAct [facility] Insulin resistance active 2024-12-31 ProblemAct [facility] Hyperlipidemia active 2024-12-31 ProblemAct [facility]_ FL[facility] Obese class II active 2024-12-31 ProblemAct [facility]_ FLYTE Migraine active 2024-12-31 ProblemAct [facility]_FLYTE Primary insomnia active 2020-08-31 ProblemAct C T_THSFRAN Amenorrhea due to Depo Provera active 2024-10-07 ProblemAct [facility]_THSFRAN Non-suppurative otitis media active 2006-08-28 ProblemAct [facility]_THS[facility]AN Carpal tunnel syndrome active 2009-11-23 ProblemAct [facility]THS[facility] Anxiety active 2020-08-31 ProblemAct [facility]_THSFR AN Class 2 obesity due to excess calories without serious comorbidity with body mass index (BMI) of 36.0 to 36.9 in adult active 2024-07-23 ProblemAct [facility]_THS JB Hypersomnia active 2020-08-31 ProblemAct [facility]_THS JB Dysthymia active 2020-08-31 ProblemAct [facility]_THSFR AN Allergic rhinitis active 2020-08-31 ProblemAct [facility]_THS[facility]AN Depression active 2009-06-03 ProblemAct CT_THSF RAN Multiple sclerosis ([facility] V24, [facility] V28) active 2011-10-17 ProblemAct [facility]_THSFRAN Immunizations Vaccine Date Source Lot Number Status Influenza trivalent, with pr eservative (Fluzone; Afluria) 6mo and older 09/13/2020 [facility]_THS[facility]AN completed Encounters Encounter Type Encounter Reason Primary Diagnosis Location Date Ambulatory [facility] 08/08/2025 Ambulatory [facility] 07/22/2025 Ambulatory [facility] 03/21/2025 Ambulatory [facility] 01/14/2025 Ambulatory [facility] 01/14/2025 Ambulatory [facility] 12/04/2024 Care Team Organization Name Specialty Phone Email Start Date End Da te [facility]20[facility] ([facility] 10/04/2024
--- OUTSIDE RECORDS SUMMARY | 2025-10-29 06:24 | XMS_ITS | Clinical Summary ---
Author Organization [facility] Address [address] [place] [address] Care Team Providers Care Financial Aid Director Name Role Phone Abdirahman Mtz NP Primary Care Provider Allergies Active Allergy Reactions Criticality Noted Date Comments Gluten 03/25/2021 Lactase 03/25/2021 Tetracycline Diarrhea 02/04/2006 Medications gabapentin (NEURONTIN) 300 mg capsule Take 1 capsule (300 mg total) by mouth 3 (three) times a day. 90 each 5 4 Active medroxyPROGESTERon e 150 mg/mL injectionIndicatio ns:Surveillance of contraceptive injection INJECT 1 ML INTO THE MUSCLE EVERY 3 MONTHS 1 mL 5 Active predniSONE (DELTASONE) 50 mg tablet 1 tablet p.o. 13, 7, and 1 hour(s) prior to MRI 3 each 5 Active methylPREDNISolone (MedroL) 32 mg tablet Take 1 tablet p.o. 12 hours and 2 hours prior to MRI 2 tablet 5 Active Active Problems Problem Noted Date Diagnosed [...] 06/03/2009 Overview (08/27/2024): Pt. 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 Advised pt. To see behavioral health therapist. Non-suppurative otitis media 08/28/2006 Overview (08/27/2024): IMO update Immunizations Immunization Administration Dates Next Due Influenza trivalent, with pr eservative (Fluzone; Afluria) 6mo and older 09/13/2020 Surgical History Surgery Date Site/Laterality Comments SECTION 2005 PROCEDURE: [place] DELIVERY ONLY TONSILLECTOMY ADENOIDECTOMY, BILATERAL MYRINGOTOMY AND TUBES PROCEDURE: [place] TONSILLECTOMY & ADENOIDECTOMY <AGE 12 CHOLECYSTECTOMY PROCEDURE: [place] LAPAROSCOPY SURG CHOLECYSTECTOMY SECTION PROCEDURE: SECTION CHOLECYSTECTOMY 2001 PROCEDURE:CHOLECYSTECTOMY TONSILLECTOMY PROCEDURE:TONSILLECTOMY Medical History Medical History Date Comments Nonsuppurative otitis media, not specified as acute or chronic 08/28/2006 DX:Nonsuppurative otitis media, not specified as acute or chronic Multiple sclerosis 10/17/2011 DX:Multiple s clerosis (HCC) Anxiety DX:Anxiety; COMM ENT: no meds Other specified personal his tory presenting hazards to health(V15.89) 08/2004 DX:Other specifie d personal history presenting hazards to health(V15.89); COMMENT: ? Multiple sclerosis 2010 DX:Multiple s clerosis (HCC) Depression DX:Depression Anxiety DX:Anxiety Allergic rhinitis 08/31/2020 DX:Allergic rh initis Family History Medical History Relation Name Comments COPD Maternal Grandfather No Known Problems Mother Other: Neg WHEEL MILL OPERATOR [place] Other Lung cancer Paternal Grandmother Other [...] 0.1 Q uit: 11/20/2004 Smokeless Tobacco: Never Tobacco Cessation:Counseling Given: Not Answered Alcohol Use Standard Drinks/Week Comments Yes 1 (1 standard drink = 0.6 oz pur e alcohol) Comments No Sex and Gender Information Value Date Recorded Sex Assigned at Not on file Legal Sex Female 7:35 PM EDT Gender Identity Not on file Sexual Orientation Not on file Obstetrics History * This document contains information received from the source organization and may not represent a complete record from that organization. Para Term AB IAB SAB Ectopic Multiple Livin g Live Births 4 0 0 0 0 0 0 0 Date Outcome GA Total Labor Labor/2nd/3rd Weight Sex Type Anes PTL Amanda A1 A5 Name Clin Last Filed Vital Signs Vital Sign Reading Time Taken Comments Blood Pressure 119/91 03/24/2025 2:55 PM EDT Pulse 100 03/24/2025 2:55 PM EDT Temperature - - Respiratory Rate 14 03/24/2025 2:55 PM EDT Oxygen Saturation - - Inhaled Oxygen Concentration - - Weight 85.7 kg (189 lb) 03/24/2025 2:55 PM EDT Height 165.1 cm (5' 5 ) 10/07/2024 3:54 PM EST Body Mass Index 31.45 10/07/2024 3:54 PM EST Plan of Treatment Health Maintenance Due Date Last Done Comments Colorectal Cancer Screening: Colonoscopy 1974 Hepatitis B Vaccines (1 of 3 - 19+ 3-dose series) 1993 Cholesterol Screening (Lipid Panel) 08/05/2020 HIV Screening 08/05/2020 Social Influencers of Health Screening 08/05/2020 Breast Cancer Screening 06/11/2023 06/11/2021 Pneumococcal Vaccine: 50+ Years (1 of 1 - PCV) 02/04/2024 Zoster Vaccines (1 of 2) 02/04/2024 Depression Screening 11/20/2024 COVID-19 Vaccine (3 - 2024-2 6 season) 2025 12/02/2021, 02/21/2021 Influenza Vaccine (#1) 2025 09/13/2020 Cervical Cancer Screening: HPV 10/07/2029 1 12/07/2023, 11/18/2019 DTaP,Tdap,and Td Vaccines (2 - Td or Tdap) 02/15/2035 02/15/2025 RSV Immunization Adult Patients (1 - 1-dose 75+ series) 2049 Hepatitis C Screening Completed 01/30/2010 HIB Vaccines [...] patient's age to complete this topic Meningococcal B Vaccine Aged Out No l onger eligible based on patient's age to complete this topic RSV Immunization Patients Under 20 months Aged Out No longer eligible b ased on patient's age to complete this topic Varicella Vaccines Aged Out No longer eligible based on patient's age to complete this topic Procedures Procedure Name Priority Date/Time Associated Diagnosis Comments HPV WITH REFLEX GENOTYPE Routine 10/07/2024 4:30 [...] Negative LAB MICROBIOLOGY METHOD 10/10/2024 2:51 PM EST [facility] Broom Cervix uteri structure / Unknown 10/07/2024 4:30 PM EST 10/09/2024 10:44 AM EST us Cuca Locke MD LAB MOLECULAR DIAGNOSTICS O RDERABLES Final Result [facility] [address] [place] [address], * SCREENING MAMMOGRAPHY BI 2-VIEW BREAST INC [...] interpreted with the aid of computer-aided detection. Comparison is made with 03/14/2013. Breast parenchyma is heterogeneously dense, limiting mammographic sensitivity. No new suspicious mass, architectural distortion, or suspicious [...] evidence of malignancy. BI-RADS 1 - negative us Cuca Locke MD IMG XR PROCEDURES Final Res ult * Hepatitis C Screening (01/30/2010) Hepatitis C Screening abstracted Historical Provider HEALTH MAINTENANCE Final Result from Last 3 Months or Most Recently Relevant to Health Maintenance [place] [id number] [facility] Care Teams Financial Aid Director Relationship Specialty Start Date End Date Abdirahman Mtz NP [address] [facility] CLAUDINE Rodriguez PCP - General Family Medicine 09/30/21
--- OUTSIDE RECORDS SUMMARY | 2025-10-29 06:24 | XMS_ITS | Encounter Summary ---
Author Organization [facility] Prior to 09/20/2024 Address [address] [place] [address] Care Team Providers Care Dinkey Locomotive Engineer Name Role Phone Heather Heller MD Primary Care Provider Unavailable Juan Garrett MD Primary Care Provider Unava Margarita Quinn MD [facility] Primary Care Provider Unavailabl e Reason for Visit * Reason Comments E-prescribe Rx Request Encounter Details Date Type Department Care Team Description 10/06/2018 Refill OBGYN - [facility] [address] Alessandra Puckett CNM E-prescribe Rx Request Social History Tobacco Use [...] encounter Miscellaneous Notes * Telephone Encounter - Humera Sanders - 10/08/2018 9:19 AM EST WHEN WAS THE PATIENTS LAST ANNUAL CHAINSTITCH TUNNEL ELASTIC OPERATOR EXAM? 10 31 17 Does patient have an upcoming appointment? Yes 12 27 18 (THE MEDICATION REQUESTED IS ON THE MED [...] Payor: FREDA/PPO POS / Plan: PPO $15 [place] [id number] / Product Type: PPO [id number] documented in this encounter Plan of Treatment Not on file documented as of this encounter Visit Diagnoses Diagnosis Encounter for gynecological examination without abnormal finding Routine gynecological examination documented in this encounter Care Teams Dinkey Locomotive Engineer Relationship Specialty Start Date End Date Heather Heller MD PCP - General Internal Medicine 09/01/17 Juan Garrett MD PCP - General Internal Medicine 11/18/19 05/25/21 Margarita Soto MD PCP - General Internal Medicine 05/26/21 09/07/21 [facility] - General Internal Medicine 09/08/21 documented as of this encounter
--- OUTSIDE RECORDS SUMMARY | 2025-10-29 06:24 | XMS_ITS | Encounter Summary ---
Author Organization [facility] Prior to 09/20/2024 Address [address] [place] [address] Care Team Providers Care Linker Up Name Role Phone Branden Atkinson MD Primary Care Provider Unavail able Heather Heller MD Primary Care Provider Unavailable Juan Garrett MD Primary Care Provider Unava ilable Margarita Soto MD Primary Care Provider Unavailab [facility] Pcp Primary Care Provider Unavailabl e Reason for Visit * Reason Onset Date Comments Advice 02/28/2012 Encounter Details Date Type Department Care Team Description 02/28/2012 Pt. Non Urgent Medical Question Adult Medicine [address] [address] Branden Atkinson MD Social History Tobacco Use Types Packs/Day [...] on file documented as of this encounter Progress Notes * Louann Akers L.P.N. - 02/28/2012 2:39 PM EDTFrom: SHAWN PAREKH To: Branden Atkinson MD Sent: MonFeb 28, 2012 11:34 AM Subject: Neurologist Reccomendation Can you reccomend a neurologist besides Dr. Moreno? I would like to get a second opinion for my MS diagnosis. Thanks documented in this encounter Plan of Treatment Not on file documented as of this encounter Visit Diagnoses Not on filedocumented in this encounter Care Teams Linker Up Relationship Specialty Start Date End Date Branden Atkinson MD PCP - General 05/29/09 08/31/17 Heather Heller MD PCP - General Internal Medicine 09/01/17 Juan Garrett MD PCP - General Internal Medicine 11/18/19 05/25/21 Margraita Soto MD PCP - General Internal Medicine 05/26/21 09/07/21 [facility], Pcp PCP - General Internal Medicine 09/08/21 documented as of this encounter
--- OUTSIDE RECORDS SUMMARY | 2025-10-29 06:24 | XMS_ITS | Encounter Summary ---
Author Organization [facility] Prior to 09/20/2024 Address [address] [place] [address] Care Team Providers Care Dietetics Director Name Role Phone Community, Pcp Primary Care Provider Unavailabl e Reason for Visit * Reason Comments E-prescribe Rx Request Encounter Details Date Type Department Care Team Description 04/27/2022 Refill OBGYN - [place] [address] [place] [address] Cuca Locke MD [address] [place] [id number] E-prescribe Rx Request Social History Tobacco Use [...] Telephone Encounter - Radha Leslie R.N. - 04/28/2022 12:31 PM EDT Last AG 11/18/19, Last OV was 2019 Annual. Patient has come in for her depo injections. Last depo 02/01/22 Patient has cancelled appts scheduled on 04/12/22, 02/01/22, no show 08/30/21, Cancelled 06/23/21, and 03/24/21. Patient scheduled for AG on 08/25/[address] Dennis. Last prescribed by Dr. Locke on 11/05/21 and has upcoming nurse visit on 05/02/22. Rx pended with 1 refill for review. * Telephone Encounter - Lori Cleopatra - 04/28/2022 11:49 AM EDT Pt scheduled annual for 08/25/22 * Telephone Encounter - Lori Cleopatra - 04/27/2022 2:27 PM EDT WHEN WAS THE PATIENTS LAST ANNUAL VELVET WEAVER EXAM? 11/18/19 Does patient have an upcoming appointment? No LM to schedule annual appt (THE MEDICATION REQUESTED IS ON THE MED LIST ABOVE) Did you check the Pharmacy information above?: YES Indicate how soon the patient needs the script: BY THE END OF THE DAY Patient would like script to be: E-PRESCRIBED/FAXED TO PHARMACY Is the doctor here today?: YES Can the message wait until the doctor returns?: NO Has the patient been told that the prescription will not be filled until the end of the day? NO Payor: BC-[place]/PPO POS / Plan: PPO $15 [place] [id number] / Product Type: PPO [id number] documented in this encounter Plan of Treatment Not on file documented as of this encounter Visit Diagnoses Diagnosis Encounter for surveillance of injectable contraceptive Surveillance of other previously prescribed contraceptive method documented in this encounter Care Teams Dietetics Director Relationship Specialty Start Date End Date Community, Pcp PCP - General Internal Medicine 09/08/21 documented as of this encounter
[2025-10-29 10:03] LABS: MANUAL DIFF FLAG NO
[2025-10-29 10:08] LABS: Hematocrit 41.6 % (37.0-47.0); Hemoglobin 13.4 g/dl (12.0-16.0); Imm Gran Abs Auto 0.01 X10*3/uL (0.00-0.03); Imm Gran Pct Auto 0.2 % (0.0-0.4); Lymphocytes Absolute Auto 1.6 X10*3/uL (1.2-4.9); Mean Corpuscular HGB Conc 32.2 g/dl (31.0-35.0); Mean Corpuscular Hemoglobin 30.9 pg (27.0-33.0); Mean Corpuscular Volume 96.1 fL (80.0-98.0); NRBC Abs Auto 0.000 X10*3/uL (0.0-0.012); NRBC Pct Auto 0.0 /100WBC (0.0-0.2); Platelet Count 283 X10*3/uL (160-400); Red Blood Count 4.33 X10*6/uL (4.20-5.50); White Blood Count 4.8 X10*3/uL (4.8-10.8)
[2025-10-29 10:49] LABS: Alanine Aminotransferase 29 U/L (0-31); Albumin Level 4.2 g/dL (3.5-5.0); Alkaline Phosphatase 60 U/L (39-117); Anion Gap 10 (12-20); Aspartate Amino Transferase 24 U/L (5-31); Blood Urea Nitrogen 12 mg/dL (9-16); Calcium 9.2 mg/dL (8.4-10.2); Carbon Dioxide 21 mmol/L (22-29); Chloride 114 mmol/L (96-108); Cholesterol 171 mg/dL (<200); Estimated Glomerular Filt Rate > 60; HDL Cholesterol 62 mg/dL (>40); Potassium 4.5 mmol/L (3.3-5.1); Sodium 140 mmol/L (135-145); Total Protein 6.7 g/dL (6.5-8.0); Triglycerides 69 mg/dL (<150)
== END 2025-10-29 06:22 | disposition home or self-care (01) ==
LOC: HO.HMGCLDS 06:21
PROVIDERS: PCP Nurse Practitioner Family; Visit Provider Nurse Practitioner Family
DX: Z00.00 Encounter for general adult medical examination without abnormal findings (principal); Z13.6 Encounter for screening for cardiovascular disorders; Z13.29 Encounter for screening for other suspected endocrine disorder; E55.9 Vitamin D deficiency, unspecified
CPT/HCPCS: 36415; 80053; 80061; 82306; 84443; 85025

== ENCOUNTER 2025-10-30 12:49 | Outpatient (AMB) | payer BC, SELFPAY ==
--- OUTSIDE RECORDS SUMMARY | 2024-08-21 14:46 | XMS_ITS | Encounter Summary ---
Author Organization [facility] Address [address] [place] [address] Care Team Providers Care Financial Counselor Name Role Phone Abdirahman Mtz NP Primary Care Provider Encounter Details Date Type Department Care Team (Late st Contact Info) Description 08/21/2024 3:46 PM EDT Hospital Encounter [facility] ONLY Regina Dumont, [address] [place] [address] Social History Tobacco Use Types Packs/Day Years [...] YANA Ramirez - 08/21/2024 4:00 PM EDT [facility] CC: MS HPI: Patient [...] discuss implication of enhancing lesion in the TEST DESKMAN indicating active disease. I strongly recommended addition [...] 40 minutes. The majority of the actual [id number] visit was spent counseling the patient with respect to the current neurological picture. Regina Dumont PA-C documented in this encounter Plan of Treatment Not on file documented as of this encounter Visit Diagnoses Not on filedocumented in this encounter Care Teams Financial Counselor Relationship Specialty Start Date End Date Abdirahman Mtz NP [address] [place], [place] PCP - General Family Medicine 09/30/21 documented as of this encounter
[2025-10-30 12:59] VITALS: BP 102/70; PULSE 83; O2SAT 100; BMI 28.1
--- NOTE | 2025-10-30 12:59 | A.OFFPC_ITS ---
Vital Signs 10/30/25 12:59 Height 5 ft 5 in Weight 169 lb BMI 28.1 BP 102/70 Blood Pressure Location Lt brachial Position Sitting Pulse 83 Pulse Oximetry (%) 100 Oxygen Delivery Method Room Air Intake Visit Reasons: 6 month f/u Machine Baster Required: No Accompanied by: Self / Same As Patient Allergies tetracycline Allergy (Intermediate, Verified 10/30/25 13:27) diarrhea Medication List - Last Reconciled 10/30/25 by REJI RehmanPMoris bupropion HCl XL 300 mg PO BID gabapentin 300 mg PO TID medroxyprogesterone mg IM metformin ER (Glucophage XR) 500 mg PO BID scopolamine base 1 patch transdermal Q3D PRN topiramate XR 100 mg PO DAILY Tobacco use date assessed: 10/30/25 Dental Screening Dental Screen Date: 10/30/25 Did you have a dental visit in the last 12 months?: Yes Did you have a dental problem in the last 6 months where you did not have access to dental care?: No Was dental information given to patient?: Patient has dentist HPI 6 month f/u HPI Details Chief Complaint The patient presents for a six-month follow-up for anxiety and depression. History of Present Illness The patient is a 50 year old female presenting with a six-month follow-up visit for anxiety and depression. She is doing quite well and is currently taking topiramate, bupropion, and metformin, which are contributing to weight loss. Social History - Exercise: The patient is physically ac tive and walking. - Diet: She is eating cabin cleaner. - Weight management: The patient is acti vely losing weight. Health Maintenance - Lab results were noted to be impressiv e. Review of Systems - Cardiovascular: Denies chest pain. - Respiratory: Denies shortness of breat h. - Psychiatric: Denies suicidal ideation and homicidal ideation. - Neurological: Denies headaches and diz ziness. Physical Exam General: Cooperative, healthy appearing, comfortable, no acute distress and well developed Orientation: Patient oriented x3 Limitations: No limitations Head: Normal to inspection Ears: Hearing grossly normal bilaterally Nose: Normal external nose present Face and sinus: Normal facial exam Eyes: Appearance normal, both eyes and all related structures Neck: Normal visual inspection and Yes full ROM Respiratory: Normal respiratory effort and able to speak in complete sentences. Clear to auscultation bilaterally Cardiovascular: Regular rate and rhythm. Normal S1 and S2 GI: Normal to inspection. Soft to palpation and nontender Skin: No rashes or lesions noted Neuro: Patient oriented x3 Extremities: Normal to inspection Results - Labs: Recent labs were quite impressiv e. Plan 1. Anxiety The patient is doing well with her current medication regimen for anxiety, which includes topiramate, bupropion, and metformin. The current regimen will be continued, and refills for these medications will be provided. A reduction in medication may be considered in the springtime. A follow-up is scheduled in 6 months. 2. Depression The patient is managing her depression well with the current treatment plan, consisting of topiramate, bupropion, and metformin. Her medications will be refilled and the current regimen will be maintained. There is a possibility of tapering the medications in the spring. Follow-up is scheduled in 6 months. 3. obesity Discussion Notes I discussed with the patient that she is doing quite well on her current medication regimen for anxiety and depression, which includes topiramate, bupropion, and metformin. We will continue her current medications and I will provide refills. We may consider reducing her medications in the spring. The patient has been actively losing weight, is physically active, and is eating cabin cleaner. Her recent lab results were impressive. I have recommended a follow-up appointment in 6 months. Patient Instructions - Continue taking your current medicatio ns (Topiramate, Bupropion, Metformin) as prescribed. We will provide refills for you. - We may think about lowering your medic ation dose in the springtime. - Continue with your physical activity, including walking, and your healthier eating habits. - Please schedule a follow-up appointdonell fox in 6 months. [facility] Medical History Vitamin D deficiency Optic neuritis Migraines Multiple sclerosis Surgical History No pertinent past surgical history Family History Father Mental health disorder Social History Housing: House Patient Tobacco Use Status: Never used Tobacco e-Cigarette/Vaping Use: Never Used Second Hand Smoke Exposure: No service: No Current occupational status: employed Current occupation: [employer] Current occupational exposures/hazards: No Cognitive needs: No Hearing needs: No Vision needs: No Questionnaire PHQ-9 Over the last 2 weeks, how often have you been bothered by any of the following problems? 1. Little interest or pleasure in doing things: not at all 2. Feeling down, depressed, or hopeless: not at all 3. Trouble falling or staying asleep, or sleeping too much: not at all 4. Feeling tired or having little energy: not at all 5. Poor appetite or overeating: not at all 6. Feeling bad about yourself - or that you are a failure or have let yourself or your family down: not at all 7. Trouble concentrating on things, such as reading the newspaper or watching television: not at all 8. Moving or speaking so slowly that other people could have noticed. Or the opposite - being so fidgety or restless that you have been moving around a lot more than usual: not at all 9. Thoughts that you would be better off or of hurting yourself in some way: not at all Total score: 0 Depression Screening Interpretation: Negative Depression Screening Done: Yes 09549 - PHQ-9 Billing: Yes Source: Developed by Drs. Milton Yanes, Ashley Calderón, Jose Maria Liu and colleagues, with an educational louis from [employer]. Thrive Questionnaire Date Thrive assessed: 12/11/24 I am a: Patient What is your living situation today?: I have a steady place to live Within the past 12 months, did the food you bought not last and you didn't have the money to get more?: Never true Within the past 12 months, did you worry whether your food would run out before you got money to buy more?: Never true Do you have trouble paying for medicines?: No Do you have trouble getting transportation to medical appointments?: No Do you have trouble paying your heating and electricity bill?: No Do you have trouble taking care of your child, family member or friend?: No Do you have trouble with day-to-day activities such as bathing, preparing meals, shopping, managing finances, etc.?: No Are you currently unemployed and looking for a job?: No Are you interested in more education?: No Please select the resources that you would like help with: None Currently or been in a relationship where the following occur: No concerns reported THRIVE Score: 0 CAREN-7 AMB Questionnaire CAREN-7 Date CAREN - 7 assessed: 10/30/25 Feeling nervous, anxious, or on edge: 0 = Not at all Not being able to stop or control worryin = Not at all Worrying too much about different things: 0 = Not at all Trouble relaxin = Not at all Being so restless that it is hard to sit still: 0 = Not at all Becoming easily annoyed or irritable: 0 = Not at all Feeling afraid as if something awful might happen: 0 = Not at all Total CAREN-7 score (0-4 normal; 5-9 mild; 10-14 moderate; 15-21 severe): 0 Source: Developed by Drs. Milton Yanes, Ashley Calderón, Jose Maria Liu and colleagues, with an educational louis from [employer]. CAREN-7 Assessment Billing CAREN-7 Assessment Tool: CAREN-7 Assessment 94756 Physical exam (Primary Care) Vital Signs: Last Vital Signs Pulse 83 10/30/25 12:59 BP 102/70 10/30/25 12:59 Pulse Ox 100 10/30/25 12:59 Oxygen Delivery Method Room Air 10/30/25 12:59 BMI result Body Mass Index 28.1 Tobacco/Smoking Status: Tobacco use Status Tobacco use date assessed 10/30/25 10/30/25 13:05 Patient Tobacco Use Status Never used Tobacco 10/30/25 13:05 e-Cigarette/Vaping Use Never Used 10/30/25 13:05 PHQ-9: PHQ-9 Score PHQ-9: Total score 0 10/30/25 13:05 Depression Screening Interpretation: Negative Thrive Assessment: Date of Thrive Assessment Date Thrive assessed 12/11/24 10/30/25 13:05 Currently or been in a relationship where the following occur: No concerns reported Coding Level of Care Code Est Pt Level 3 (59484) Diagnoses Anxiety F41.9 Depression F32.A Obesity E66.9 Additional Codes CAREN-7 Assessment Billing - CAREN-7 Assessment Tool: CAREN-7 Assessment 39223 ([id number]) PHQ-9 - 87722 - PHQ-9 Billing: Yes ([id number]) Assessment & Plan Assessment & Plan (1) Anxiety: Code(s): F41.9 - Anxiety disorder, unspecified Category: Medical (2) Depression: Code(s): F32.A - Depression, unspecified Category: Medical (3) Obesity: Code(s): E66.9 - Obesity, unspecified Category: Medical Plan . Medications: New topiramate XR 100 mg PO DAILY 90 caps 1RF 90 days bupropion HCl XL 300 mg PO QAM 90 tabs 1RF 90 days
--- OUTSIDE RECORDS SUMMARY | 2025-10-30 19:28 | XMS_ITS | Clinical Summary ---
Author Organization [facility] Prior to 04/19/[address] [place] [id number] Care Team Providers Care Director Labor Standards Name Role Phone Abdirahman Mtz Primary Care Provider [phone] Allergies Active Allergy Reactions Criticality Noted Date [...] age to complete this topic Care Teams Director Labor Standards Relationship Specialty Start Date End Date Abdirahman Mtz [address] [facility] [place] [address] PCP - General Family Medicine 09/30/21
--- OUTSIDE RECORDS SUMMARY | 2025-10-30 19:29 | XMS_ITS | Clinical Summary ---
Author Organization Patient Business Ser [facility] Address [address] [place] [address] Care Team Providers Care Inspector [employer] Name Role Phone Abdirahman Mtz NP Primary [...] 06/03/2009 Overview (08/27/2024): Pt. 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 Advised pt. To see behavioral health therapist. Non-suppurative otitis media 08/28/2006 Overview (08/27/2024): IMO update Immunizations Immunization Administration Dates Next Due Influenza trivalent, with pr eservative (Fluzone; Afluria) 6mo and older 09/13/2020 Surgical History Surgery Date Site/Laterality Comments SECTION 2005 PROCEDURE: [place] DELIVERY ONLY TONSILLECTOMY ADENOIDECTOMY, BILATERAL MYRINGOTOMY AND TUBES PROCEDURE: MT TONSILLECTOMY & ADENOIDECTOMY <AGE 12 CHOLECYSTECTOMY PROCEDURE: [place] LAPAROSCOPY SURG CHOLECYSTECTOMY SECTION PROCEDURE: SECTION CHOLECYSTECTOMY [...] Grandfather No Known Problems Mother Other: Neg COMPOSING ROOM SUPERVISOR [place] Other Lung cancer Paternal Grandmother Other [...] LAB MICROBIOLOGY METHOD 10/10/2024 2:51 PM EST [facility] Broom Cervix uteri structure / Unknown 10/07/2024 4:30 PM EST 10/09/2024 10:44 AM EST us Cuca Locke MD LAB MOLECULAR DIAGNOSTICS O RDERABLES Final Result [facility] [address] [place] [address], * SCREENING MAMMOGRAPHY BI 2-VIEW BREAST INC [...] to Health Maintenance [place] [id number] [facility] Care Teams Inspector [employer] Relationship Specialty Start Date End Date Abdirahman Mtz NP [address] [facility] CLAUDINE Rodriguez PCP - General Family Medicine 09/30/21
== END 2025-10-30 13:46 | disposition home or self-care (01) ==
LOC: HO.HMCC 12:50
PROVIDERS: PCP Nurse Practitioner Family; Visit Provider Nurse Practitioner Family
DX: F41.9 Anxiety disorder, unspecified (principal); F32.A Depression, unspecified; E66.9 Obesity, unspecified; Z68.28 Body mass index [BMI] 28.0-28.9, adult

== ENCOUNTER → 2025-10-30 12:49 | Outpatient (BNVA) | payer BC, SELFPAY | PROVIDERS: PCP Nurse Practitioner Family; Visit Provider Nurse Practitioner Family | DX: F32.A Depression, unspecified (principal); F41.9 Anxiety disorder, unspecified; E66.9 Obesity, unspecified; Z79.84 Long term (current) use of oral hypoglycemic drugs; Z79.899 Other long term (current) drug therapy; Z68.28 Body mass index [BMI] 28.0-28.9, adult | CPT/HCPCS: 96127 ==